=== PATIENT | female | born 1965 | race Caucasian/White ===

== ENCOUNTER → 2023-10-31 11:00 | Outpatient (BNV) | payer OTHER, SELFPAY | PROVIDERS: Visit Provider Psychiatry & Neurology Psychiatry | DX: F43.10 Post-traumatic stress disorder, unspecified (principal); F10.19 Alcohol abuse with unspecified alcohol-induced disorder; F33.9 Major depressive disorder, recurrent, unspecified; F17.210 Nicotine dependence, cigarettes, uncomplicated; R41.89 Other symptoms and signs involving cognitive functions and awareness | CPT/HCPCS: 90792; 99499 ==

== ENCOUNTER 2023-11-05 11:30 | Outpatient (RCR) | payer OTHER, SELFPAY ==
[2023-10-30 12:02] VITALS: BP 122/80; PULSE 90; TEMP 37.5
[2023-10-30 12:04] VITALS: BMI 25.2
--- NOTE | 2023-10-30 16:36 | HO.PHP ---
Client's case has been opened and reviewed in treatment team.
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
--- NOTE | 2023-11-06 15:42 | HO.PHP ---
PHP admin, Kassie, noted that Swati called out sick today.
--- NOTE | 2023-11-07 07:32 | HO.PHP ---
PHP admin, Kassie, received a call from Swati, in which she disclosed she is not going to be in attendance to program today due to being sick. Swati reported no safety concerns and will be here on Friday.
--- NOTE | 2023-11-10 08:12 | PM.EVENT ---
Event Note Date of Service: 11/07/23 Event Note: Patient was scheduled to be seen today but called out of PHP this AM. Time Spent With Patient Time: Total time managing care of this patient today ____ minutes.
== END 2023-11-10 23:59 | disposition home or self-care (01) ==
LOC: HO.PHPA 11:30
PROVIDERS: Visit Provider Psychiatry & Neurology Psychiatry
DX: F43.10 Post-traumatic stress disorder, unspecified (principal); F10.19 Alcohol abuse with unspecified alcohol-induced disorder; F33.9 Major depressive disorder, recurrent, unspecified; R41.89 Other symptoms and signs involving cognitive functions and awareness; F17.210 Nicotine dependence, cigarettes, uncomplicated; Z79.899 Other long term (current) drug therapy
CPT/HCPCS: 90791; 90853

== ENCOUNTER 2024-11-03 22:53 | Emergency (ER) | payer MEDICARE, SELFPAY ==
--- NOTE | 2024-11-03 | ECG_ITS ---
Test Reason : fall Blood Pressure : */* mmHG Vent. Rate : 80 BPM Atrial Rate : 80 BPM P-R Int : 170 ms QRS Dur : 84 ms QT Int : 468 ms P-R-T Axes : 44 39 77 degrees QTcB Int : 539 ms Normal sinus rhythm Nonspecific T wave changes Prolonged QT Abnormal ECG When compared with ECG of 12-Aug-2019 11:15, T wave inversion now evident in Anterior leads QT has lengthened Referred By: Flaco Rock Electronically Signed By: Casey Sanchez
--- NOTE | ~2024-11-03 | CT_ITS ---
CLINICAL HISTORY: fall CT cervical spine without contrast Comparison: None Findings: Vertebral alignment is within normal limits. Multilevel degenerative change of the cervical spine. No acute fractures or dislocations. Visualized intracranial contents are unremarkable. No cervical fluid collections or masses. Lung apices are clear. IMPRESSION: No acute findings. This document has been electronically signed by: Praveen Baeza MD on 11/04/2024 01:04:59
--- NOTE | ~2024-11-03 | CT_ITS ---
CLINICAL HISTORY: fall CT head without contrast Comparison: None Findings: No intra-axial mass, midline shift, hydrocephalus, or acute hemorrhage. No significant atrophy-like change or white matter disease. There is no sinus or mastoid fluid. The orbits are within normal limits. There is no acute fracture. IMPRESSION: 1. No acute intracranial findings. This document has been electronically signed by: Praveen Baeza MD on 11/04/2024 01:07:08
[2024-11-03 23:08] VITALS: BP 50/34; BP 76/42; PULSE 82; PULSE 84; RESP 16; O2SAT 91; BMI 31.8
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
[2024-11-03] MEDS: 0.9 % Sodium Chloride 1,000 ML 999 ML IV (23:15)
[2024-11-03 23:44] VITALS: BP 77/37; PULSE 80; RESP 16; TEMP 36.4; O2SAT 94
[2024-11-03 23:44] LABS: MANUAL DIFF FLAG NO
[2024-11-03 23:45] LABS: Basophils Absolute Auto 0.1 X10*3/uL (0.0-0.2); Basophils Percent Auto 0.7 % (0-2); Eosinophils Absolute Auto 0.1 X10*3/uL (0.0-0.4); Eosinophils Percent Auto 0.9 % (0-4); Hematocrit 34.8 % (37.0-47.0); Hemoglobin 12.2 g/dl (12.0-16.0); Imm Gran Abs Auto 0.03 X10*3/uL (0.00-0.03); Imm Gran Pct Auto 0.3 % (0.0-0.4); Lymphocytes Absolute Auto 3.5 X10*3/uL (1.2-4.9); Lymphocytes Percent Auto 39.4 % (20-40); Mean Corpuscular HGB Conc 35.1 g/dl (31.0-35.0); Mean Corpuscular Hemoglobin 31.7 pg (27.0-33.0); Mean Corpuscular Volume 90.4 fL (80.0-98.0); Mean Platelet Volume 9.4 fL (9.4-12.3); Monocytes Absolute Auto 0.6 X10*3/uL (0.1-1.2); Monocytes Percent Auto 6.7 % (2-11); Neutrophils Absolute Auto 4.6 x10*3/uL (2.0-8.3); Platelet Count 145 X10*3/uL (160-400); Red Blood Count 3.85 X10*6/uL (4.20-5.50); Red Cell Distribution Width 12.8 % (11.0-16.0); White Blood Count 8.8 X10*3/uL (4.8-10.8)
--- NOTE | 2024-11-03 23:47 | PC.NURSE ---
pt awake, alert, speaking clear full sentences at time of triage assessment - no apparent distress noted . received 1L bolus NS en route by ems, also received another 1L NS bolus here in ED on arrival. received 2 liters total, BP still 77/37. MD Rock aware.
[2024-11-03 23:58] LABS: Ethanol 131 mg/dL
[2024-11-03] MEDS: Lactated Ringers 1,000 ML 999 ML IVCONT (23:59)
[2024-11-04] VITALS (10 sets, daily range): BP systolic 76–120; BP diastolic 44–66; PULSE 75–84; RESP 15–20; TEMP 36.4–36.8; O2SAT 96–99
[2024-11-04 00:02] LABS: Alanine Aminotransferase 10 U/L (0-31); Albumin Level 3.2 g/dL (3.5-5.0); Alkaline Phosphatase 71 U/L (39-117); Anion Gap 15 (12-20); Aspartate Amino Transferase 29 U/L (5-31); Bilirubin Total 0.6 mg/dL (0.0-1.0); Blood Urea Nitrogen 12 mg/dL (9-16); Calcium 7.9 mg/dL (8.4-10.2); Carbon Dioxide 18 mmol/L (22-29); Chloride 111 mmol/L (96-108); Creatinine Clr Calc Pharmacy 42.2; Estimated Glomerular Filt Rate 36; Glucose Random 90 mg/dL (60-115); Magnesium 1.8 mg/dL (1.6-2.6); Potassium 3.6 mmol/L (3.3-5.1); Sodium 140 mmol/L (135-145); Total Protein 5.4 g/dL (6.5-8.0)
[2024-11-04 00:05] LABS: Troponin-I High Sensitivity 7.7 ng/L (<3.5-17.0)
[2024-11-04] MEDS: Midodrine HCl 10 MG TABLET PO (00:37)
[2024-11-04] MEDS: Albumin Human 25 % 100 ML 133.33 ML IV ×2 (01:05→01:56)
--- NOTE | 2024-11-04 01:07 | PC.NURSE ---
pt sitting up eating sandwich.
--- NOTE | 2024-11-04 02:01 | PC.NURSE ---
Pt s/o Thomas came to visit and explained to this RN that while patient was drinking earlier she disclosed thoughts of SI/self-harm, per thomas [place] [facility] was on scene and took this info down. Pt denies any SI/HI to me, says she never said this nor does she remember ever having these thoughts. Per thomas he would like her to speak with someone from care team as she has history of depression and recently relapsed on alcohol, pt in agreeance with this plan, however currently denying SI/HI at this time.
--- NOTE | 2024-11-04 03:02 | PC.NURSE ---
this RN called to check on urine specimen that was collected and sent to lab by [facility], however jonh in lab states that they never received the urine specimen
--- NOTE | 2024-11-04 04:24 | PC.NURSE ---
pt ambulated to bathroom, given urine cup for clean catch sample.
[2024-11-04 04:36] LABS: Appearance Urine Clear; Color Urine Yellow; Glucose Urine UA Negative (Negative); Leukocyte Esterase Urine Negative (Negative); Nitrite Urine Negative (Negative); PH 5.5 (5.0-9.0); Urine Blood Negative (Negative); Urine Ketones Negative (Negative); Urine Protein Negative (Neg-Trace)
[2024-11-04 04:47] LABS: Amphetamine Screen Urine Not Detected (Not Detect); Barbiturates, Urine Not Detected (Not Detect); Benzodiazepines Screen Urine Not Detected (Not Detect); Buprenorphine Scr Not Detected (Not Detect); Cannabinoid Screen Urine Not Detected (Not Detect); Cocaine Screen Urine Not Detected (Not Detect); Fentanyl, urine Not Detected (Not Detect); Methadone Screen, Urine Not Detected (Not Detect); Opiate Screen Urine Not Detected (Not Detect); Oxycodone Screen Urine Not Detected (Not Detect); Phencyclidine Screen Urine Not Detected (Not Detect)
[2024-11-04 07:58] LABS: Anion Gap 10 (12-20); Blood Urea Nitrogen 9 mg/dL (9-16); Calcium 9.1 mg/dL (8.4-10.2); Carbon Dioxide 23 mmol/L (22-29); Chloride 114 mmol/L (96-108); Creatinine Clr Calc Pharmacy 81.3; Estimated Glomerular Filt Rate > 60; Glucose Random 92 mg/dL (60-115); Potassium 4.3 mmol/L (3.3-5.1); Sodium 143 mmol/L (135-145)
== END 2024-11-04 10:19 | disposition home or self-care (01) ==
PROVIDERS: Emergency Medicine; Emergency Provider Internal Medicine; PCP Internal Medicine
DX: F10.19 Alcohol abuse with unspecified alcohol-induced disorder (principal); Y90.6 Blood alcohol level of 120-199 mg/100 ml; F33.9 Major depressive disorder, recurrent, unspecified; I95.89 Other hypotension; F43.10 Post-traumatic stress disorder, unspecified; F17.210 Nicotine dependence, cigarettes, uncomplicated; Z79.899 Other long term (current) drug therapy; S00.83XA Contusion of other part of head, initial encounter; W19.XXXA Unspecified fall, initial encounter; Y93.9 Activity, unspecified; Y92.9 Unspecified place or not applicable; Y99.9 Unspecified external cause status
CPT/HCPCS: 36415; 70450; 72125; 80048; 80053; 80307; 81003; 83735; 84484; 85025; 93005; 96361; 96365; 96366; 99285; J7120; P9047; S9485

== ENCOUNTER → 2024-11-03 23:21 | Outpatient (BNV) | payer MEDICARE, SELFPAY | PROVIDERS: Emergency Provider Internal Medicine; PCP Internal Medicine; Visit Provider Radiology Diagnostic Radiology | DX: S00.93XA Contusion of unspecified part of head, initial encounter (principal); W01.198A Fall on same level from slipping, tripping and stumbling with subsequent striking against other object, initial encounter | CPT/HCPCS: 70450; 72125 ==

== ENCOUNTER → 2024-11-03 23:22 | Outpatient (BNV) | payer MEDICARE, SELFPAY | PROVIDERS: Emergency Provider Internal Medicine; PCP Internal Medicine; Visit Provider Internal Medicine Cardiovascular Disease | DX: R94.31 Abnormal electrocardiogram [ECG] [EKG] (principal) | CPT/HCPCS: 93010 ==

== ENCOUNTER 2024-11-16 13:27 | Emergency (ER) | payer MEDICARE, SELFPAY ==
[2024-11-16 13:48] VITALS: BP 114/61; PULSE 78; O2SAT 97
--- NOTE | 2024-11-16 14:00 | ECG_ITS ---
Test Reason : qtc check Blood Pressure : */* mmHG Vent. Rate : 74 BPM Atrial Rate : 74 BPM P-R Int : 176 ms QRS Dur : 80 ms QT Int : 434 ms P-R-T Axes : 51 24 16 degrees QTcB Int : 481 ms Normal sinus rhythm Normal ECG When compared with ECG of 03-Nov-2024 23:22, T wave inversion no longer evident in Anterior leads QT has shortened Referred By: Tangela Marie Electronically Signed By: MARION LEMONS
--- NOTE | 2024-11-16 14:04 | ED_ITS ---
HPI - Alcohol General Chief Complaint: Psychiatric Symptoms Stated Complaint: ETOH. SI. Restraints per ems Time Seen by Provider: 11/16/24 13:37 Source: patient, EMS and old records reviewed Mode of arrival: EMS Limitations: no limitations History of Present Illness ED Provider: NATO AGRAWAL narrative: 59 yo female with PMH of PTSD, depression, ETOH abuse, HTN who was doing well in [place] no ETOH use for 6.5 months but relapsed and came back here to live with alcoholic boyfriend. This AM around breakfast she took her medications including a few extra klonopin but no SI intent. She states it was not a handful. She is very depressed and states she always has SI but won't do it. She denies falls or trauma. She states she wants to go to dual dx. No hx of ETOH withdrawal seizures. Drinks beer and 4 to 5 nips a day. She drank [employer]CH[employer]ICIAN complaint: alcohol intoxication and alcohol dependence Last drink: Just prior to admission Chronic alcohol use: Yes Previous visits for alcohol intoxication: Yes Recent trauma: No Associated symptoms: depression Treatments prior to arrival: none Related Data Home Medications ?Medication ?Instructions ?Recorded ?Confirmed buspirone 15 mg tablet 15 mg PO TID 10/31/23 11/16/24 clonazepam 1 mg tablet 1 mg PO TID PRN Anxiety 10/31/23 11/16/24 escitalopram oxalate 20 mg tablet 20 mg PO QAM 10/31/23 11/16/24 prazosin 2 mg capsule 4 mg PO BEDTIME 10/31/23 11/16/24 valsartan 320 mg tablet 320 mg PO DAILY 10/31/23 11/16/24 zolpidem 10 mg tablet 10 mg PO BEDTIME PRN Insomnia 10/31/23 11/16/24 bupropion HCl 150 mg 24 hr tablet, 150 mg PO QAM 11/16/24 11/16/24 extended release hydroxyzine pamoate 25 mg capsule 25 mg PO BEDTIME PRN Anxiety 11/16/24 11/16/24 Allergies Allergy/AdvReac Type Severity Reaction Status Date / Time meperidine [From DEMEROL] Allergy Unknown UNKNOWN Verified 11/16/24 14:20 Review of Systems 2 Review of Systems: Constitutional : No Fever, No Chills ENT/Mouth : No Ear Pain, No Nasal Congestion, No sore throat Eyes: No Eye Pain, No Swelling, No Redness Cardiovascular : No Chest Pain, No SOB Respiratory : No Cough, No Sputum, No Dyspnea Gastrointestinal : No Nausea, No Vomiting, No Diarrhea, No Hematochezia, No Melena Genitourinary : No Dysuria, No Urinary Frequency, No Hematuria Musculoskeletal : No Myalgias Skin : No Skin Lesions, No rash Neuro : No Weakness, No Numbness, No Paresthesias, No Dizziness, No Headache Psych : positive Anxiety, positive Depression, no SI/HI All other systems reviewed and are negative [facility] Past Medical History Attestation statement: The following information was validated with the patient. Source: old records reviewed Medical History (Updated 11/16/24 @ 14:12 by Tangela Marie DO) MDD (major depressive disorder), recurrent episode Post traumatic stress disorder (PTSD) Alcohol abuse with unspecified alcohol-induced disorder Hypertension Social History Social History Household Members: Significant Other and Other Household Members Other:: My Dog Alcohol intake: current Alcohol intake frequency: other Alcohol type: beer and hard liquor Patient Tobacco Use Status: Current everyday Tobacco user Tobacco use type: Cigarette Cigarettes Per Day: 9 Smoked in Last 30 Days: Yes Use of substances other than those prescribed or required for medical reasons: No Advance Directives: No Advance Directives Information Provided: Yes Do you have a plan to hurt others: No Plan Physical Exam ED Vital Signs: Vital Signs - 24 hr 11/16/24 14:19 11/16/24 20:41 11/16/24 22:37 Temperature 97.9 F 97.9 F 98.4 F Pulse Rate 58 98 65 Respiratory Rate 18 16 16 Blood Pressure 104/71 96/59 L 125/78 Pulse Oximetry 100 94 98 Oxygen Delivery Method Room Air Room Air Room Air 11/16/24 23:04 11/17/24 06:09 11/17/24 09:36 Temperature 98.3 F Pulse Rate 77 Respiratory Rate 16 16 Blood Pressure 125/78 125/70 Pulse Oximetry 97 Oxygen Delivery Method Room Air BMI result Body Mass Index 30.3 Appearance: Alert. Oriented X3. No acute distress. Eyes: Pupils equal, round and reactive to light. ENT: Pharynx normal. Neck: Normal inspection. Neck supple. CVS: Normal heart rate and rhythm. Pulses normal. Respiratory: No respiratory distress. Breath sounds normal. Abdomen: Soft and nontender. Skin: Skin warm and dry. Normal skin color. Normal skin turgor. Extremities: No lower extremity edema. No calf ttp Neuro: Oriented X 3. No motor deficit. No sensory deficit. CN2-12 intact Course Reevaluation(s) Reevaluation #1: November 17 2024 patient remain stable no event reported overnight patient is dual diagnosis bed search. Vital signs reviewed as a 06:09 stable Time: 07:27 Reevaluation #2: 9:04 Am seen by crisis cleared for d/c Time: 09:04 Medical Decision Making Medical Decision Making MDM Narrative: 59 yo female with PMH of PTSD, depression, ETOH abuse, HTN here with depression and ETOH abuse she is asking for dual dx bed search. She denies any sig ingestion of klonopin states it was a few. She denies SI/HI but states she is severely depressed. Labs, EKG, PRN ativan, CARE team consult Differential Diagnosis Differential Diagnoses: The differential diagnosis associated with the presentation includes ETOH abuse, benzo abuse Admission/Observation Consideration of admission/observation: Escalation of care including admission/observation considered physician observation started at 210pm pending CARE team Consult Healthcare Provider Management of the patient was discussed with: Behavioral Health Provider Lab Data [facility] Lab Attestation statement: I reviewed the patient's lab results. 11/16/24 14:13 11/16/24 14:13 Labs: Lab Results 11/16/24 11/16/24 Range/Units 14:13 14:51 WBC 6.9 (4.8-10.8) X10*3/uL RBC 4.37 (4.20-5.50) X10*6/uL Hgb 13.8 (12.0-16.0) g/dl Hct 40.7 (37.0-47.0) % MCV 93.1 (80.0-98.0) fL MCH 31.6 (27.0-33.0) pg MCHC 33.9 (31.0-35.0) g/dl RDW 14.0 (11.0-16.0) % Plt Count 135 L (160-400) X10*3/uL MPV 8.9 L (9.4-12.3) fL Immature Gran % (Auto) 0.4 (0.0-0.4) % Neut % (Auto) 56.6 (45-73) % Lymph % (Auto) 34.0 (20-40) % Tillman % (Auto) 7.8 (2-11) % Eos % (Auto) 0.6 (0-4) % Baso % (Auto) 0.6 (0-2) % Lymph # (Auto) 2.4 (1.2-4.9) X10*3/uL Tillman # (Auto) 0.5 (0.1-1.2) X10*3/uL Eos # (Auto) 0.0 (0.0-0.4) X10*3/uL Baso # (Auto) 0.0 (0.0-0.2) X10*3/uL Abs Immat Gran (auto) 0.03 (0.00-0.03) X10*3/uL Absolute Neuts (auto) 3.9 (2.0-8.3) x10*3/uL Absolute Nucleated RBC 0.000 (0.0-0.012) X10*3/uL Nucleated RBC % (auto) 0.0 (0.0-0.2) /100WBC Sodium 140 (135-145) mmol/L Potassium 3.8 (3.3-5.1) mmol/L Chloride 109 H (96-108) mmol/L Carbon Dioxide 22 (22-29) mmol/L Anion Gap 13 (12-20) BUN 4 L (9-16) mg/dL Creatinine 0.70 (0.5-1.4) mg/dL Estim Creat Clear Calc 95.2 Estimated GFR > 60 Random Glucose 89 (60-115) mg/dL Calcium 9.1 (8.4-10.2) mg/dL Magnesium 2.1 (1.6-2.6) mg/dL Total Bilirubin 1.1 H (0.0-1.0) mg/dL Direct Bilirubin 0.3 (0.0-0.5) mg/dL AST 25 (5-31) U/L ALT 18 (0-31) U/L Alkaline Phosphatase 95 (39-117) U/L Total Protein 6.1 L (6.5-8.0) g/dL Albumin 3.9 (3.5-5.0) g/dL Lipase 10 (8-78) U/L Urine Color Yellow Urine Appearance Clear Urine pH 6.0 (5.0-9.0) Ur Specific [place] <= 1.005 (1.005-1.025) Urine Protein Negative (Neg-Trace) mg/dL Urine Glucose (UA) Negative (Negative) mg/dL Urine Ketones Negative (Negative) mg/dL Urine Blood Negative (Negative) Urine Nitrite Negative (Negative) Ur Leukocyte Esterase Negative (Negative) Urine Opiates Screen Not Detected (Not Detect) Ur Buprenorphine Scrn Not Detected (Not Detect) ng/mL Ur Oxycodone Screen Not Detected (Not Detect) ng/mL Urine Methadone Screen Not Detected (Not Detect) ng/mL Urine Fentanyl Screen Not Detected (Not Detect) Ur Barbiturates Screen Not Detected (Not Detect) Ur Phencyclidine Scrn Not Detected (Not Detect) Ur Amphetamines Screen Not Detected (Not Detect) U Benzodiazepines Scrn Not Detected (Not Detect) Urine Cocaine Screen Not Detected (Not Detect) U Marijuana (THC) Screen Not Detected (Not Detect) Ethyl Alcohol 211 mg/dL Independent Interpretation I performed an independent interpretation of an: EKG Interpretation: Rate: 74 Rhythm: NSR [place]: normal Normal P waves. Normal FRANTZ. Normal QRS complex. ST T wave : normal no ANTONIO qTC: 481 prior studies: no acute ischemia The study has been interpreted contemporaneously by me. . Independent Historian Clinical information obtained from an independent historian. History obtained from or confirmed by: EMS External Record Review External record reviewed: Inpatient record and Outpatient record Medications Administered Discontinued Medications Generic Name Dose Route Start Last Admin Trade Name Freq PRN Reason Stop Dose Admin Bupropion HCl 150 mg 11/17/24 09:00 11/17/24 08:33 Bupropion Hcl Xl 150 Mg Tab.Er.24h PO 150 mg DAILY RUSLAN Administration Buspirone HCl 15 mg 11/16/24 23:00 11/17/24 08:33 Buspirone Hcl 5 Mg Tablet PO 15 mg TID RUSLAN Administration Clonazepam 1 mg 11/16/24 22:50 11/17/24 08:33 Clonazepam 1 Mg Tablet PO 1 mg TID PRN Administration Anxiety Escitalopram Oxalate 20 mg 11/17/24 09:00 11/17/24 08:33 Escitalopram Oxalate 20 Mg Tablet PO 20 mg DAILY RUSLAN Administration Lorazepam 2 mg 11/16/24 14:01 11/16/24 14:44 Lorazepam 1 Mg Tablet PO 2 mg Q3H PRN Administration Alcohol Withdrawal Prazosin HCl 4 mg 11/16/24 23:00 11/16/24 23:04 Prazosin Hcl 1 Mg Capsule PO 4 mg BEDTIME RUSLAN Administration Protocol Thiamine HCl 100 mg 11/16/24 13:59 11/16/24 14:44 Thiamine Hcl 100 Mg Tablet PO 11/16/24 14:00 100 mg ONCE ONE Administration Valsartan 320 mg 11/17/24 09:00 11/17/24 08:33 Valsartan 320 Mg Tablet PO 320 mg DAILY RUSLAN Administration Protocol Zolpidem Tartrate 10 mg 11/16/24 22:50 11/16/24 23:04 Zolpidem Tartrate 5 Mg Tablet PO 10 mg BEDTIME PRN Administration Insomnia Discharge Plan Discharge Clinical Impression: Post traumatic stress disorder (PTSD), Alcohol abuse with unspecified alcohol- induced disorder Patient Disposition: Home, Self-Care Instructions: Post Traumatic Stress Disorder (ED), Abuse of Alcohol (ED) Additional Instructions: Alcohol use disorder You were seen in the Emergency Department today for treatment of alcohol use disorder.? You may have been given medications to help with your withdrawal symptoms.? Please do not drink alcohol with them. This is very dangerous and can cause respiratory depression or other adverse reactions depending on the medication. If you would like to cut down or stop your alcohol use please consider calling our outpatient Addiction Treatment office:? [facility] (M-F [id number]) [address] [place] [address] ? You have also been given a list of treatment providers in the area that can assist as well.? If you experience seizures, vomiting blood, black stools, falls, severe headache, chest pain, fevers, trouble breathing, hallucinations or any other concerns you need to call 911 or seek immediate care. Please stay hydrated. You were seen in our Emergency Department today for treatment of a behavioral health issue. It is important after your visit that you follow up with either your behavioral health provider or a primary care doctor within 7 days.? If you have trouble finding a therapist you can reach out to [address] [phone] The National Suicide and Crisis Lifeline can be reached 7 days a week 24 hours a day.? Call 738 to speak with someone.? Return for any worsening symptoms or concerns such as thoughts of self harm or harm to others. Please call 911 if you feel your mental health is worsening.? Prescriptions: No Action clonazepam 1 mg tablet 1 mg PO TID PRN (Reason: Anxiety) valsartan 320 mg tablet 320 mg PO DAILY zolpidem 10 mg tablet 10 mg PO BEDTIME PRN (Reason: Insomnia) prazosin 2 mg capsule 4 mg PO BEDTIME buspirone 15 mg tablet 15 mg PO TID escitalopram oxalate 20 mg tablet 20 mg PO QAM bupropion HCl 150 mg tablet extended release 24 hr 150 mg PO QAM hydroxyzine pamoate 25 mg capsule 25 mg PO BEDTIME PRN (Reason: Anxiety) Interventions: Waldo-Suicide Risk Severity Scale Last Done: 11/16/24 14:29 ED Discharge Assessment Last Done: 11/17/24 09:36 Discharge Date/Time: 11/17/24 09:50 Print Language: [place]
[2024-11-16 14:19] VITALS: BP 104/71; PULSE 58; RESP 18; TEMP 36.6; O2SAT 100; BMI 30.3
[2024-11-16 14:19] LABS: MANUAL DIFF FLAG NO
[2024-11-16 14:20] LABS: Basophils Percent Auto 0.6 % (0-2); Eosinophils Percent Auto 0.6 % (0-4); Hematocrit 40.7 % (37.0-47.0); Hemoglobin 13.8 g/dl (12.0-16.0); Imm Gran Abs Auto 0.03 X10*3/uL (0.00-0.03); Imm Gran Pct Auto 0.4 % (0.0-0.4); Lymphocytes Absolute Auto 2.4 X10*3/uL (1.2-4.9); Mean Corpuscular HGB Conc 33.9 g/dl (31.0-35.0); Mean Corpuscular Hemoglobin 31.6 pg (27.0-33.0); Mean Corpuscular Volume 93.1 fL (80.0-98.0); Mean Platelet Volume 8.9 fL (9.4-12.3); Monocytes Absolute Auto 0.5 X10*3/uL (0.1-1.2); Monocytes Percent Auto 7.8 % (2-11); Neutrophils Absolute Auto 3.9 x10*3/uL (2.0-8.3); Neutrophils Percent Auto 56.6 % (45-73); Platelet Count 135 X10*3/uL (160-400); Red Blood Count 4.37 X10*6/uL (4.20-5.50); White Blood Count 6.9 X10*3/uL (4.8-10.8)
[2024-11-16 14:36] LABS: Alanine Aminotransferase 18 U/L (0-31); Albumin Level 3.9 g/dL (3.5-5.0); Alkaline Phosphatase 95 U/L (39-117); Anion Gap 13 (12-20); Aspartate Amino Transferase 25 U/L (5-31); Bilirubin Direct 0.3 mg/dL (0.0-0.5); Bilirubin Total 1.1 mg/dL (0.0-1.0); Blood Urea Nitrogen 4 mg/dL (9-16); Calcium 9.1 mg/dL (8.4-10.2); Carbon Dioxide 22 mmol/L (22-29); Chloride 109 mmol/L (96-108); Creatinine Clr Calc Pharmacy 95.2; Estimated Glomerular Filt Rate > 60; Ethanol 211 mg/dL; Glucose Random 89 mg/dL (60-115); Lipase 10 U/L (8-78); Magnesium 2.1 mg/dL (1.6-2.6); Potassium 3.8 mmol/L (3.3-5.1); Sodium 140 mmol/L (135-145); Total Protein 6.1 g/dL (6.5-8.0)
[2024-11-16] MEDS: Thiamine HCL 100 MG TABLET PO (14:44)
[2024-11-16] MEDS: LORazepam 1 MG TABLET 2 MG PO (14:44)
[2024-11-16 15:00] LABS: Appearance Urine Clear; Color Urine Yellow; Glucose Urine UA Negative (Negative); Leukocyte Esterase Urine Negative (Negative); Nitrite Urine Negative (Negative); Specific Gravity - Urine <= 1.005 (1.005-1.025); Urine Blood Negative (Negative); Urine Ketones Negative (Negative); Urine Protein Negative (Neg-Trace)
[2024-11-16 15:17] LABS: Amphetamine Screen Urine Not Detected (Not Detect); Barbiturates, Urine Not Detected (Not Detect); Benzodiazepines Screen Urine Not Detected (Not Detect); Buprenorphine Scr Not Detected (Not Detect); Cannabinoid Screen Urine Not Detected (Not Detect); Cocaine Screen Urine Not Detected (Not Detect); Fentanyl, urine Not Detected (Not Detect); Methadone Screen, Urine Not Detected (Not Detect); Opiate Screen Urine Not Detected (Not Detect); Oxycodone Screen Urine Not Detected (Not Detect); Phencyclidine Screen Urine Not Detected (Not Detect)
--- OUTSIDE RECORDS SUMMARY | 2024-11-16 18:15 | XMS_ITS | Clinical Summary ---
Author Organization Cindy Waters [facility] Address [address] [place] [id number] Care Team Providers Care Chief Embalmer Name Role Phone Maykel Serrano MD Unavailable [phone] Siobhan Cota MD Unavailable Unavailable None, Pcp Primary Care Provider Unavailabl e Allergies Active Allergy Reactions Criticality Noted Date Comments Meperidine Unknown 12/29/2012 Encounters Date Type Department Care Team Description 10/28/2024 5:25 PM EDT - 10/28/2024 10:58 PM EDT [facility] [address] [place] [address] [phone] Sapna Ulloa NP Meenan, Kelly A, PA Alcoholic intoxication without complication (HCC) (Primary Dx); Suicidal ideation; Post traumatic stress disorder (PTSD) [F43.10] Discharge Disposition: Home or Self Care 10/28/2024 Travel from Last 3 Months Social History Tobacco Use Types Packs/Day Years Used Date Smoking Tobacco: Never Assessed Comments Unknown Sex and Gender Information Value Date Recorded Sex Assigned at Female 10/26/2024 10:08 AM EDT Legal Sex Female 1:45 AM EST Gender Identity Female 10/26/2024 10:08 AM EDT Sexual Orientation Not on file Last Filed Vital Signs Vital Sign Reading Time Taken Comments Blood Pressure 107/67 10/28/2024 10:33 PM EDT Pulse 71 10/28/2024 10:33 PM EDT Temperature 36.4 ??C (97.6 ??F) 10/28/2024 5:09 PM ED T Respiratory Rate 20 10/28/2024 10:33 PM EDT Oxygen Saturation 97% 10/28/2024 10:33 PM EDT Inhaled Oxygen Concentration - - Weight - - Height 167.6 cm (5' 6 ) 10/28/2024 5:09 PM EDT Body Mass Index - - Plan of Treatment Upcoming Encounters Date Type Department Care Team (Late st Contact Info) Description 05/04/2025 11:00 AM EDT Office Visit [facility] [address] [facility] [address] [place] [address] Tima Alicea III, MD [address] [place] [address] [address] [place] [address] In Person with Physician Health Maintenance Due Date Last Done Comments Lipid Panel 1965 Depression Screening 1969 Hepatitis C Screening 1983 DTaP,Tdap,and Td Vaccines (1 - Tdap) 1984 HPV/Cotest 1995 Breast Cancer Screening 2005 CT Colonography 2010 Colonoscopy 2010 Colorectal Cancer Screening 2010 FIT 2010 FOBT 2010 Multitarget Stool DNA (Cologuard) 2010 Sigmoidoscopy 2010 Cervical Cancer Screening 11/29/2011 Pap Smear 11/29/2011 11/28/2008, 07/18, 04/07/2008, Additional history exists Pneumococcal Vaccine (1 of 1 - PCV) 2015 Zoster Vaccine (1 of 2) 2015 COVID-19 Vaccine (1 - season) 2024 Influenza Vaccine (#1) 2024 Blood Pressure 10/28/2025 10/28/2024 Meningococcal Vaccines Aged Out No lo nger eligible based on patient's age to complete this topic Pneumococcal Vaccine: Pediatrics (0 to 5 Years) and At-Risk Patients (6 to 64 Years) Aged Out No longer eligible based on patient's age to complete this topic Procedures Procedure Name Priority Date/Time Associated Diagnosis Comments CT CERVICAL SPINE WO CONTRAST STAT 10/28/2024 10:[address] HEAD WO CONTRAST STAT 10/28/2024 1 0:04 PM EDT 6-ACETYLMORPHINE SCREEN, URINE STAT 10/28/2024 6:11 PM EDT TRAMADOL SCREEN, URINE STAT 10/28/2024 6:11 PM EDT FENTANYL SCREEN, URINE STAT 10/28/2024 6:11 PM EDT DRUG SCREEN, URINE STAT 10/28/2024 6: 11 PM EDT CBC AND DIFFERENTIAL STAT 10/28/2024 5:51 PM EDT RAINBOW DRAW STAT 10/28/2024 5:51 PM EDT CBC AND DIFFERENTIAL STAT 10/28/2024 5:51 PM EDT YELLOW TOP STAT 10/28/2024 5:51 PM EDT MINT GREEN TOP STAT 10/28/2024 5:51 PM EDT RED TOP STAT 10/28/2024 5:51 PM EDT LIGHT BLUE TOP STAT 10/28/2024 5:51 PM EDT TOXICOLOGY SCREEN, BLOOD STAT 10/28/2024 5:51 PM EDT BASIC METABOLIC PANEL STAT 10/28/2024 5:51 PM EDT ECG 12-LEAD STAT 10/28/2024 5:46 PM EDT LIQUID-BASED PAP, REFLEX HPV IF ASC-US Routine 11/28/2008 from Last 3 Months or Most Recently Relevant to Health Maintenance Results * CT Cervical Spine Without Contrast (10/28/2024 10:04 PM EDT) Anatomical Region Laterality Modality Cervical Spine Computed Tomogra phy 10/29/2024 8:02 AM EDT Impressions 10/29/2024 8:04 AM EDT No acute fracture or traumatic malalignment of the cervical spine. Narrative 10/29/2024 8:04 AM EDT EXAM DESCRIPTION: ??CT CERVICAL SPINE WO CONTRAST. CLINICAL HISTORY: ??fall, intoxicated; COMPARISON: ?? None. TECHNIQUE: ??Spiral CT images were acquired through the cervical spine. ??Coronal, axial, and sagittal reformats were submitted for interpretation. - MIPS Measure #361 Patient Exposure to Ionizing Radiation was submitted to [employer] Dose Index Registry and MIPS Measure #359 standard nomenclature was used for Dose Index registry submission and Measure #436 Adaptive Iterative Dose Reduction (AIDR) and NEMA XR 25 DOSE check software, were used to reduce radiation dose to the patient FINDINGS: ??No acute fracture, compression deformity, or traumatic listhesis is identified. ??There is slight reversal of the normal cervical lordosis with grade 1 anterolisthesis of C2 on 3. ??The C1-2 and C1 to occipital condyle relationships are intact. ??Vertebral body heights are grossly maintained. ??Multilevel discogenic disease and degenerative changes are greatest at C5-6 with disc space narrowing, endplate degenerative change, marginal osteophytosis, posterior disc osteophyte complex formation, uncovertebral hypertrophy, and facet arthrosis. ??This results in varying levels of central canal and neural foraminal narrowing. ??Prevertebral soft tissues are unremarkable. ??Few subcentimeter left apical pulmonary nodules are nonspecific. Procedure Note Manju Gordillo MD - 10/29/2024 EXAM DESCRIPTION: CT CERVICAL SPINE WO CONTRAST. CLINICAL HISTORY: fall, intoxicated; COMPARISON: None. TECHNIQUE: Spiral CT images were acquired through the cervical spine. Coronal, axial, and sagittal reformats were submitted for interpretation. - MIPS Measure #361 Patient Exposure to Ionizing Radiation was submitted to [employer]ose[employer] Dose Index Registry and MIPS Measure #359 standard nomenclature was used for Dose Index registry submission and Measure #436 Adaptive Iterative Dose Reduction (AIDR) and NEMA XR 25 DOSE check software, were used to reduce radiation dose to the patient FINDINGS: No acute fracture, compression deformity, or traumatic listhesis is identified. There is slight reversal of the normal cervical lordosis with grade 1 anterolisthesis of C2 on 3. The C1-2 and C1 to occipital condyle relationships are intact. Vertebral body heights are grossly maintained. Multilevel discogenic disease and degenerative changes are greatest at C5-6 with disc space narrowing, endplate degenerative change, marginal osteophytosis, posterior disc osteophyte complex formation, uncovertebral hypertrophy, and facet arthrosis. This results in varying levels of central canal and neural foraminal narrowing. Prevertebral soft tissues are unremarkable. Few subcentimeter left apical pulmonary nodules are nonspecific. IMPRESSION: No acute fracture or traumatic malalignment of the cervical spine. Sapna Ulloa NP IMCornel[facility] CT ORDERABLES Final Result * CT Head Without Contrast (10/28/2024 10:04 PM EDT) Anatomical Region Laterality Modality Head Computed Tomogra phy 10/29/2024 8:00 AM EDT Impressions 10/29/2024 8:01 AM EDT No acute intracranial hemorrhage, large territorial infarction, or mass effect. Narrative 10/29/2024 8:01 AM EDT EXAM DESCRIPTION: ??CT HEAD WO CONTRAST. CLINICAL HISTORY: ??fall, intoxicated; . COMPARISON: ??None. TECHNIQUE: ??A series of 3 mm axial scans with 2 mm collimation were reconstructed from the foramen magnum to the vertex of the skull. - MIPS Measure #361 Patient Exposure to Ionizing Radiation was submitted to [employer]ose[employer]ise Dose Index Registry and MIPS Measure #359 standard nomenclature was used for Dose Index registry submission and Measure #436 Adaptive Iterative Dose Reduction (AIDR) and NEMA XR 25 DOSE check software, were used to reduce radiation dose to the patient . FINDINGS: ??There is no CT evidence for acute intracranial hemorrhage, large territorial infarction, mass effect, midline shift, or extra-axial collection. ??Brain parenchymal volume is age-appropriate. Emmanuel-white matter differentiation is preserved. ??The ventricles and basal cisterns are symmetric in caliber and configuration. ??Is mild left maxillary sinus mucosal thickening. ??The remaining visualized paranasal sinuses and mastoid air cells are well aerated. ??No acute calvarial fracture is seen. Procedure Note Manju Gordillo MD - 10/29/2024 EXAM DESCRIPTION: CT HEAD WO CONTRAST. CLINICAL HISTORY: fall, intoxicated; . COMPARISON: None. TECHNIQUE: A series of 3 mm axial scans with 2 mm collimation were reconstructed from the foramen magnum to the vertex of the skull. - MIPS Measure #361 Patient Exposure to Ionizing Radiation was submitted to [employer]ose[employer] Dose Index Registry and MIPS Measure #359 standard nomenclature was used for Dose Index registry submission and Measure #436 Adaptive Iterative Dose Reduction (AIDR) and NEMA XR 25 DOSE check software, were used to reduce radiation dose to the patient . FINDINGS: There is no CT evidence for acute intracranial hemorrhage, large territorial infarction, mass effect, midline shift, or extra-axial collection. Brain parenchymal volume is age-appropriate. Emmanuel-white matter differentiation is preserved. The ventricles and basal cisterns are symmetric in caliber and configuration. Is mild left maxillary sinus mucosal thickening. The remaining visualized paranasal sinuses and mastoid air cells are well aerated. No acute calvarial fracture is seen. IMPRESSION: No acute intracranial hemorrhage, large territorial infarction, or mass effect. Sapna Ulloa NP [facility] CT ORDERABLES Final Result * 6-Acetylmorphine Screen, Urine (10/28/2024 6:11 PM EDT) 6-Aceytlmorphine Screen, Urine Negative Negative MAYS [id number] 10/28/2024 6:57 PM EDT [facility] Comment: 6-acetylmorphine cutoff is 10 ng/mL 6-acetylmorphine Add on order [id number] Opiates and Oxycodone, Urine, Confirmation, if confirmation desired. Results should be used for medical purposes only and not for any legal or employment evaluative purposes. Urine URINE SPECIMEN / Unknown Collection / Unknown 10/28/2024 6:11 PM EDT 10/28/2024 6:11 PM EDT Sapna Artemio FL[employer]ANG[employer] URINE ORDERABLES Final Result [facility] [address] [place] [address], [place] [phone] * Drug Screen, Urine (10/28/2024 6:11 PM EDT) [facility] Amphetamines Screen, Urine Negative Negative 10/28/2024 7:00 PM EDT [facility] Barbiturates Screen, Urine Negative Negative 10/28/2024 7:00 PM EDT [facility] Benzodiazepine Screen, Urine Negative Negative [facility], [facility] Negative Negative [facility]abin[facility] Screen, Urine Negative Negative 10/28/2024 7:00 PM [facility] Cocaine Metabolite Screen, Urine Negative Negative 10/28/2024 7:00 PM [facility] Methadone Screen, Urine Negative Negative 10/28/2024 7:00 PM [facility] Methamphetamine, Urine Negative Negative 10/28/2024 7:00 PM [facility] Opiates Screen, Urine Negative Negative 10/28/2024 7:00 PM [facility] Oxycodone Screen, Urine Negative Negative 10/28/2024 7:00 PM [facility] TCA, Urine Negative Negative 10/28/2024 7:00 PM [facility] Creatinine, Sherif Urine 26.2 No Established Reference Range mg/dL MAYS [id number] 10/28/2024 7:00 PM [facility] Fentanyl Screen, Urine Negative Negative MAYS [id number] 10/28/2024 7:00 PM [facility] Tramadol Screen, Urine Negative Negative MAYS [id number] 10/28/2024 7:00 PM [facility] 6-Aceytlmorphine Screen, Urine Negative Negative MAYS [id number] 10/28/2024 7:00 PM [facility] Urine URINE SPECIMEN / Unknown Collection / Unknown 10/28/2024 6:11 PM EDT 10/28/2024 6:11 PM EDT [facility] - 10/28/2024 7:00 PM EDT Specimen analysis was performed without chain of custody handling. Urine drug screen results should be used for medical purposes only and not for any legal or employment evaluative purposes. Amphetamines cutoff is 500 ng/mL. Barbiturates cutoff is 200 ng/mL. Benzodiazepines cutoff is 150 ng/mL. Buprenorphine cutoff is 300 ng/mL. Cannabinoids cutoff is 50 ng/mL. Cocaine cutoff is 150 ng/mL. ?? Methadone cutoff is 200 ng/mL. Methamphetamine cutoff is 500 ng/ml Opiates cutoff is 100 ng/mL. Oxycodone cutoff is 100 ng/mL. Phencyclidine (PCP) cutoff is 25 ng/mL ?? TCA cutoff is 300 ng/mL Urine results are presumptive based only on screening methods and have not been confirmed by a second method. ??These results should be used only by physicians to render diagnosis, treatment, or to monitor progress of medical conditions. ??The assay is not intended to monitor compliance or absinence. Thresholds are established by the test community education coordinator. ??Drug levels below thresholds will be reported as negative. ??This is an antibody-antigen methods screening test and has the potential for false positive results caused by other drugs, medications and supplements with similar structures, if results are discordant clinically. Sapna Ulloa URINE ORDERABLES Final Result Performing Organization Address City/State/[facility] Co de Phone Number [facility] [address] [place] [address], * Tramadol Screen, Urine (10/28/2024 6:11 PM EDT) [facility] Tramadol Screen, Urine Negative Negative be2 [id number] 10/28/2024 6:57 PM EDT [facility] Comment: Tramadol cutoff is 200 ng/mL Tramadol. Add-on order [id number] Tramadol Confirmation, Urine, if confirmation desired. Results should be used for medical purposes only and not for any legal or employment evaluative purposes. Urine URINE SPECIMEN / Unknown Collection / Unknown 10/28/2024 6:11 PM EDT 10/28/2024 6:11 PM EDT IMVU URINE ORDERABLES Final Result Performing Organization Address City/[facility]/ZIP Co de Phone Number [facility] [address] [place] [address], [place] [phone] * Fentanyl Screen, Urine (10/28/2024 6:11 PM EDT) Pathologist [facility] Fentanyl Screen, Urine Negative Negative MAYS [id number] 10/28/2024 6:57 PM EDT [facility] Urine URINE SPECIMEN / Unknown Collection / Unknown 10/28/2024 6:11 PM EDT 10/28/2024 6:11 PM EDT Sapna Ulloa [employer] URINE ORDERABLES Final Result Performing Organization Address [facility] Co de Phone Number [facility] [address] [place] [address], [place] [phone] * (ABNORMAL) CBC and Differential (10/28/2024 5:51 PM EDT) [facility] WBC 10.60 4.00 - 11.00 K/uL 10/28/2024 6:02 PM EDT [facility] RBC 4.72 4.00 - 5.20 M/uL 10/28/2024 6:02 PM EDT [facility] Hemoglobin 15.1(H) 12.0 - 15.0 g/dL 10/28/2024 6:02 PM EDT [facility] Hematocrit 43.4 36.0 - 45.0 % 10/28/2024 6:02 PM EDT [facility] MCH 32.0 23.0 - 37.0 pg 10/28/2024 6:02 PM EDT [facility] MCHC 34.8 29.0 - 38.0 g/dL 10/28/2024 6:02 PM EDT [facility] MCV 92 82 - 98 fL 10/28/2024 6:02 PM EDT [facility] RDW 12.6 11.5 - 15.0 % 10/28/2024 6:02 PM EDT [facility] Platelet Count 161 150 - 450 K/uL 10/28/2024 6:02 PM EDT [facility] MPV 9.2 8.0 - 14.0 fL 10/28/2024 6:02 PM EDT [facility] Neutrophil 50.2 % 10/28/2024 6:02 PM EDT [facility] Lymphocyte 42.1 % 10/28/2024 6:02 PM EDT [facility] Monocyte 5.8 % 10/28/2024 6:02 PM EDT [facility] Eosinophil 0.9 % 10/28/2024 6:02 PM EDT [facility] Basophil 0.8 % 10/28/2024 6:02 PM EDT [facility] Immature Granulocyte ([place], Myelo, Promyelocyte) 0.2 % 10/28/2024 6:02 PM EDT [facility] Absolute Neutrophil Count 5.32 1.50 - 7.70 K/uL [facility] Immature Granulocyte ([place], Myelo, Promyelocyte) 0.02 0.00 - 0.09 K/uL 10/28/2024 6:02 PM EDT [facility] Absolute Lymphocyte Count 4.46 1.00 - 5.00 K/uL 10/28/2024 6:02 PM EDT [facility] Absolute Monocyte Count 0.61 0.10 - 1.00 K/uL 10/28/2024 [facility] Eosinophil Count 0.10 0.00 - 0.70 K/uL 10/28[facility]2024 [facility] Absolute Basophil Count 0.09 0.00 - 0.20 K/uL 10/28/2024 6:02 PM [facility] Blood PERIPHERAL BLOOD SPECIMEN / Unknown Venipuncture / Unknown 10/28/2024 5:51 PM EDT 10/28/2024 5:51 PM EDT us Sapna Ulloa NP LAB BLOOD ORDERABLES Final Res ult [facility] [address] [place] [address], * (ABNORMAL) Plasma Toxicology Screen (10/28/2024 5:51 PM EDT) Acetaminophen Result,Blood <3(L) Therapuetic Range 10-30 ug/mL [place]A [id number] 10/28/2024 6:48 PM EDT [facility] Alcohol 207(HH) <10 mg/dL [address] 10/28/2024 6:48 PM EDT [facility] Salicylate Level, Blood <5(L) 15 - <30 mg/dL [address] 10/28/2024 6:48 PM EDT [facility] Blood PERIPHERAL BLOOD SPECIMEN / Unknown Venipuncture / Unknown 10/28/2024 5:51 PM EDT 10/28/2024 5:51 PM EDT us Sapna Chandrahane [employer] LAB BLOOD ORDERABLES Final Res ult Performing Organization Address [facility]/ZIP Co de Phone Number [address] [address], [place] [phone] * Gold Top (10/28/2024 5:51 PM EDT) Gold Top Tube Received 10/28/2024 7:02 PM EDT [facility] Blood PERIPHERAL BLOOD SPECIMEN / Unknown Venipuncture / Unknown 10/28/2024 5:51 PM EDT 10/28/2024 5:51 PM EDT us Sapna Toureramona BANERJEE LAB BLOOD ORDERABLES Final Res ult Performing Organization Address City/[facility]/ZIP Co de Phone Number [facility] [address] [place] [address], [place] [phone] * Mint Green Top (10/28/2024 5:51 PM EDT) PST Tube Received 10/28/2024 7:02 PM EDT [facility] Blood PERIPHERAL BLOOD SPECIMEN / Unknown Venipuncture / Unknown 10/28/2024 5:51 PM EDT 10/28/2024 5:51 PM EDT us Sapna Ulloa [employer] LAB BLOOD ORDERABLES Final Res ult [facility] [address] [place] [address], [place] [phone] * Red Top (10/28/2024 5:51 PM EDT) Red Top Tube Received 10/28/2024 7:02 PM EDT [facility] Blood PERIPHERAL BLOOD SPECIMEN / Unknown Venipuncture / Unknown 10/28/2024 5:51 PM EDT 10/28/2024 5:51 PM EDT Sapna Touree [employer] LAB BLOOD ORDERABLES Final Res ult Performing Organization Address [facility] Co de Phone Number [facility] [address] [place] [address], [place] [phone] * Blue Top (10/28/2024 5:51 PM EDT) Blue Top Tube Received 10/28/2024 7:02 PM EDT [facility] Blood PERIPHERAL BLOOD SPECIMEN / Unknown Venipuncture / Unknown 10/28/2024 5:51 PM EDT 10/28/2024 5:51 PM EDT Sapna Artemio [employer] LAB BLOOD ORDERABLES Final Res ult Performing Organization Address [facility] de Phone Number [facility] [address] [place] [address], [place] [phone] * (ABNORMAL) Basic Metabolic Panel (10/28/2024 5:51 PM EDT) Pathologist [facility] Sodium 136 134 - 144 mmol/L MAYS [id number] 10/28/2024 6:21 PM EDT [facility] Potassium 3.4 3.2 - 5.1 mmol/L MAYS [id number] 10/28/2024 6:21 PM EDT [facility] Comment:Samples tested in se rum may exhibit a higher potassium value than those tested on plasma. Our current range is based on plasma testing. Chloride 106 97 - 109 mmol/L MAYS [id number] 10/28/2024 6:21 PM EDT [facility] Total CO2/Bicarbonat e 18(L) 20 - 32 mmol/L [address] 10/28/2024 6:21 PM EDT [facility] Anion Gap 12 5 - 15 mmol/L [address] 10/28/2024 6:21 PM EDT [facility] BUN 6(L) 7 - 20 mg/dL [address] 10/28/2024 6:21 PM EDT [facility] Creatinine, Blood 0.76 0.60 - 1.10 mg/dL [address] 10/28/2024 6:21 PM EDT [facility] Glucose, Blood 87 70 - 110 mg/dL [address] 10/28/2024 6:21 PM EDT [facility] Calcium 9.8 8.5 - 10.5 mg/dL [address] 10/28/2024 6:21 PM EDT [facility] Estimated GFR(CKD-EPI) 86 >=60 mL/min/BSA [address] 10/28/2024 6:21 PM EDT [facility] Blood PERIPHERAL BLOOD SPECIMEN / Unknown Venipuncture / Unknown 10/28/2024 5:51 PM EDT 10/28/2024 5:51 PM EDT Sapna Ulloa [employer] LAB BLOOD ORDERABLES Final Res ult [address] [address], * ECG 12 lead (10/28/2024 5:46 PM EDT) [facility] Ventricular Heart Rate 77 BPM EKG WIN Atrial Heart Rate 77 BPM EKG WIN VA Interval 158 ms EKG WIN QRSD Interval 76 ms EKG WIN QT Interval 422 ms EKG WIN QTC Interval 477 ms EKG WIN P [place] 79 degrees EKG WIN R [place] 47 degrees EKG WIN T Wave [place] 118 degrees EKG WIN 10/28/2024 5:46 PM EDT 10/29/2024 3:12 PM EDT Narrative EKG WIN - 10/29/2024 3:12 PM EDT Normal sinus rhythm ST & T wave abnormality, consider lateral ischemia Abnormal ECG No previous ECGs available Confirmed by Morgan Betancourt ([id number]) on 10/29/2024 3:12:12 PM Procedure Note Morgan Betancourt MD - 10/29/[address] & T wave abnormality, consider lateral ischemia Abnormal ECG No previous ECGs available Confirmed by Morgan Betancourt ([id number]) on 10/29/2024 3:12:12 PM us Sapna Ulloa NP ECG ORDERABLES Final Result [facility] [address] [place] [address] * LB PAP, Screen, reflex HPV if ASC-US (11/28/2008) 11/28/2008 11/28/2008 7:4 9 AM EDT Narrative CONVERSION FROM [facility] - 12/07/2008 11:46 AM EDT ?CYTOLOGY DIAGNOSIS ? SATISFACTORY FOR EVALUATION, ENDOCERVICAL COMPONENT ABSENT ? Negative for intraepithelial lesion or malignancy ? SHIFT IN [place] SUGGESTIVE OF BACTERIAL VAGINOSIS ? EDUCATION NOTES AND SUGGESTIONS: ? Lack of transformation zone component does not warrant an ? early repeat cytology. ??Attention to regular screening is ? suggested. ?Dictated by: MANUEL FAIR NOTES: ? This is the result of a screening test with inherent, but ? low, probability of error. Your patient should be reminded ? to consult you immediately if she experiences any suspicious ? signs or symptoms, regardless of her Pap test result. PATH PROCEDURES: ? THIN PREP MAN SPECIMEN DESCRIPTION: ? 1 VIAL/SOURCE OF SPECIMEN WAS NOT PROVIDED CLINICAL HISTORY: ? CLINICAL DIAGNOSIS ??795.00 ? Signed Electronically Signed ?MANUEL FAIR 12/07/08 1146 Laura Rose MD PATHOLOGY/CYTOLOGY ORDERABLES Final Result Performing Organization Address [facility] Co de Phone Number CONVERSION FROM [facility] from Last 3 Months or Most Recently Relevant to Health Maintenance Insurance [place] [address] [employer]AGE [employer]AGE Care Teams Chief Embalmer Relationship Specialty Start Date End Date Maykel Serrano MD [address] [place] [phone] PCP - Insurance Assigned PCP 10/20/24 None, MD Kaye PCP - General 10/28/24 Siobhan Cota MD 10/21/17
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
--- NOTE | 2024-11-16 20:37 | PC.NURSE ---
pt ambulating to the bathroom with an even and steady gait
[2024-11-16 20:41] VITALS: BP 96/59; PULSE 98; RESP 16; TEMP 36.6; O2SAT 94
--- NOTE | 2024-11-16 21:01 | PC.NURSE ---
pt awaraea of plan of care, move to POD and then follow up with care team in the AM, pt is requesting to go home. MD aware. Care team will speak with pt again
--- NOTE | 2024-11-16 22:10 | PC.NURSE ---
@2020 requested outpatient meds be continued for patient
[2024-11-16 22:37] VITALS: BP 125/78; PULSE 65; RESP 16; TEMP 36.9; O2SAT 98
--- NOTE | 2024-11-16 22:44 | PC.NURSE ---
requested med continuance from 2nd provider
[2024-11-16] MEDS: busPIRone HCl 5 MG TABLET 15 MG PO (23:02)
[2024-11-16 23:04] VITALS: BP 125/78
[2024-11-16] MEDS: Prazosin HCL 1 MG CAPSULE 4 MG PO (23:04)
[2024-11-16] MEDS: Zolpidem Tartrate 5 MG TABLET 10 MG PO (23:04)
--- NOTE | 2024-11-17 04:16 | PC.NURSE ---
pt sleeping at this time, no sign of distress.
[2024-11-17 06:09] VITALS: RESP 16
--- NOTE | 2024-11-17 08:06 | PHA.MEDREC ---
Addendum entered by Carolyne Kendall RPh 11/17/24 08:43: Med rec was reviewed by [facility]. Original Note: Pharmacy Consult ? Medication Reconciliation Pharmacy has reviewed the medication reconciliation done by nursing. Utilized claims to confirm med rec.
[2024-11-17] MEDS: Escitalopram Oxalate 20 MG TABLET PO (08:33)
[2024-11-17] MEDS: Valsartan 320 MG TABLET PO (08:33)
[2024-11-17] MEDS: busPIRone HCl 5 MG TABLET 15 MG PO (08:33)
[2024-11-17] MEDS: buPROPion HCl XL 150 MG TAB.ER.24H PO (08:33)
[2024-11-17] MEDS: clonazePAM 1 MG TABLET PO (08:33)
[2024-11-17 09:36] VITALS: BP 125/70; PULSE 77; RESP 16; TEMP 36.8; O2SAT 97
--- NOTE | 2024-11-17 10:41 | MHC.CARE ---
Referral was faxed to [facility] for a 3 day follow up and a request was made to have pt placed on a 7 day alert. [facility] confirms they have received the fax and it has been activated.
== END 2024-11-17 09:50 | disposition home or self-care (01) ==
PROVIDERS: Emergency Provider Emergency Medicine; PCP Internal Medicine
DX: F43.10 Post-traumatic stress disorder, unspecified (principal); F10.19 Alcohol abuse with unspecified alcohol-induced disorder; Y90.7 Blood alcohol level of 200-239 mg/100 ml; R45.851 Suicidal ideations; F33.9 Major depressive disorder, recurrent, unspecified; F17.210 Nicotine dependence, cigarettes, uncomplicated; I10 Essential (primary) hypertension; Z79.899 Other long term (current) drug therapy
CPT/HCPCS: 36415; 80048; 80076; 80307; 81003; 83690; 83735; 85025; 93005; 99285; S9485

== ENCOUNTER → 2024-11-16 14:00 | Outpatient (BNV) | payer MEDICARE, SELFPAY | PROVIDERS: Emergency Provider Emergency Medicine; PCP Internal Medicine; Visit Provider Internal Medicine | DX: Z13.6 Encounter for screening for cardiovascular disorders (principal) | CPT/HCPCS: 93010 ==

== ENCOUNTER 2024-11-24 13:32 | Inpatient (IN) | payer OTHER, SELFPAY ==
[2024-11-24 13:59] VITALS: BP 108/60; BP 120/60; PULSE 57; PULSE 62; RESP 17; TEMP 37.1; O2SAT 97; O2SAT 98; BMI 25.4
--- NOTE | 2024-11-24 14:06 | ECG_ITS ---
Test Reason : overdose Blood Pressure : */* mmHG Vent. Rate : 60 BPM Atrial Rate : 60 BPM P-R Int : 178 ms QRS Dur : 84 ms QT Int : 486 ms P-R-T Axes : 54 31 54 degrees QTcB Int : 486 ms Normal sinus rhythm Prolonged QT Abnormal ECG When compared with ECG of 16-Nov-2024 14:06, No significant change was found Referred By: Ronen Best Electronically Signed By: Casey Sanchez
--- NOTE | 2024-11-24 14:07 | ED.OVERDOSE ---
HPI - Overdose General Chief Complaint: Psychiatric Symptoms Stated Complaint: Section 12, SI, ETOH/consumed 20 klonopin Time Seen by Provider: 11/24/24 13:49 Source: patient Mode of arrival: EMS Limitations: no limitations History of Present Illness HPI Narrative: This is a 59 years old female with a history of alcohol abuse presented to the emergency department via ambulance after ingested about 20 clonazepam 1 mg of an hour ago, patient reports she has been suicidal, she has been gone through a lot of stress MD complaint: intentional overdose Intent: suicide attempt Context: Intentional Overdose: relationship problems and drug/ETOH problems Associated symptoms: depression Treatments Prior to Arrival: none Related Data Home Medications ?Medication ?Instructions ?Recorded ?Confirmed buspirone 15 mg tablet 15 mg PO TID 10/31/23 11/25/24 clonazepam 1 mg tablet 1 mg PO TID PRN Anxiety 10/31/23 11/25/24 escitalopram oxalate 20 mg tablet 20 mg PO DAILY 10/31/23 11/25/24 prazosin 2 mg capsule 4 mg PO BEDTIME 10/31/23 11/25/24 valsartan 320 mg tablet 320 mg PO DAILY 10/31/23 11/25/24 zolpidem 10 mg tablet 10 mg PO BEDTIME PRN Insomnia 10/31/23 11/25/24 bupropion HCl 150 mg 24 hr tablet, 150 mg PO DAILY 11/16/24 11/25/24 extended release hydroxyzine pamoate 25 mg capsule 25 mg PO BEDTIME PRN Anxiety 11/16/24 11/25/24 Allergies Allergy/AdvReac Type Severity Reaction Status Date / Time meperidine [From DEMEROL] Allergy Unknown UNKNOWN Verified 11/24/24 14:03 Review of Systems Psychiatric: Psychiatric: Reports depression and Reports other (Alcohol abuse) [facility] Past Medical History Medical History (Updated 11/24/24 @ 14:21 by Ronen Best MD) MDD (major depressive disorder), recurrent episode Post traumatic stress disorder (PTSD) Alcohol abuse with unspecified alcohol-induced disorder Hypertension Social History Social History Household Members: Significant Other and Other Household Members Other:: My Dog Alcohol intake: current Alcohol intake frequency: other Alcohol type: beer and hard liquor Patient Tobacco Use Status: Current everyday Tobacco user Tobacco use type: Cigarette Cigarettes Per Day: 9 Smoked in Last 30 Days: Yes Use of substances other than those prescribed or required for medical reasons: No Advance Directives: No Advance Directives Information Provided: Yes Do you have a plan to hurt others: No Plan Physical Exam Vital Signs: Vital Signs: Last Vital Signs Temp 97.0 F 11/25/24 08:22 Pulse 59 11/25/24 08:22 Resp 20 11/25/24 08:22 BP 107/62 11/25/24 08:22 Pulse Ox 94 11/25/24 08:22 O2 Del Method Room Air 11/25/24 08:22 BMI result Body Mass Index 25.4 She is awake alert oriented x3 no distress Const: General: cooperative Nutritional Appearance: average body habitus Orientation/consciousness: patient oriented x3 Limitations: no limitations HEENT: Head: Yes normal to inspection General nose exam: Normal external nose present Face and sinus: Yes normal facial exam Throat: Yes posterior oropharynx normal Neck: Neck: Yes normal visual inspection Chest: Chest palpation & inspection: normal inspection of the chest Resp: Effort & Inspection: normal respiratory effort Auscultation: clear to auscultation bilaterally Cardio: Jugular venous distension: no JVD Rate: regular rate Rhythm: regular rhythm GI: Inspection: Yes normal to inspection Palpation (GI): not soft and not firm Auscultation: normal bowel sounds Skin: General skin exam: no rashes or lesions noted and elasticity normal Lesions: no lesions Rashes: no rashes Wounds: no wounds Neuro: General: patient oriented x3 Course Course Course Narrative: Time: 14:14 Date: 11/25/24 Provider: Zuhair Zazueta MD Patient in physician observation for psychiatric evaluation.? No acute events reported overnight. No current complaints. VS stable.? Per CARE team recommendations, patient is admitted as inpatient for further care Reevaluation(s) Reevaluation #1: Consulted poison control no charcoal, we will continue observation for clinical deterioration Time: 14:21 Reevaluation #2: Patient remain awake and alert asking for food. At this point I think we will cleared the patient. As now 2 hours of observation in the ED remained awake and alert stable vital signs labs within normal limits. We will consult crisis. Time: 15:51 Reevaluation #3: Awake and alert eating and drinking signed out to Dr Rivera crisis eval pending Time: 16:15 Additional Reevaluation(s): Dr. Rivera, 11/24/2024, 23:46: The patient was signed out out to me by the previous emergency physician pending a crisis evaluation. The patient has been seen by the crisis team. Given the nature of the patient's overdose they are recommending that the patient be admitted for inpatient care. They are recommending the patient be held on a section 12 for this purpose. The patient was unhappy about this decision and told me that she does not feel that she had any plans to harm herself and she was requesting that she be discharged. She seemed to have very little insight that she had taken a potentially significantly dangerous overdose. I spoke to the care team and we agreed that the patient's lack of insight into the significance of what she had done was very poor and that keeping the patient on a section 12 because of her unreliablity and failure to understand the significance of a previous actions was reasonable. The patient will therefore be placed in physician observation pending disposition by the care team. HCP invoked due to advanced dementia Medications Administered Discontinued Medications Generic Name Dose Route Start Last Admin Trade Name Freq PRN Reason Stop Dose Admin Sodium Chloride 1,000 mls @ 999 mls/hr 11/24/24 14:15 11/24/24 15:35 Ns IVCONT 11/24/24 15:15 Infused .Q1H1M RUSLAN Infusion Medical Decision Making Medical Decision Making [facility] Narrative: Patient is here with overdose of clonazepam we will check acetaminophen level aspirin level alcohol level with consult poison control we will watch closely for clinical deterioration Differential Diagnosis Differential Diagnoses: The differential diagnosis associated with the presentation includes Overdose of clonazepam/alcohol abuse/alcohol intoxication Lab Data [facility] Lab Attestation statement: I reviewed the patient's lab results. 11/24/24 14:34 11/24/24 14:34 Labs: Lab Results 11/24/24 11/24/24 Range/Units 14:34 19:14 WBC 7.1 (4.8-10.8) X10*3/uL RBC 4.27 (4.20-5.50) X10*6/uL Hgb 13.6 (12.0-16.0) g/dl Hct 39.4 (37.0-47.0) % MCV 92.3 (80.0-98.0) fL MCH 31.9 (27.0-33.0) pg MCHC 34.5 (31.0-35.0) g/dl RDW 14.2 (11.0-16.0) % Plt Count 168 (160-400) X10*3/uL MPV 8.6 L (9.4-12.3) fL Immature Gran % (Auto) 0.3 (0.0-0.4) % Neut % (Auto) 48.7 (45-73) % Lymph % (Auto) 44.7 H (20-40) % Elk % (Auto) 5.2 (2-11) % Eos % (Auto) 0.7 (0-4) % Baso % (Auto) 0.4 (0-2) % Lymph # (Auto) 3.2 (1.2-4.9) X10*3/uL Elk # (Auto) 0.4 (0.1-1.2) X10*3/uL Eos # (Auto) 0.1 (0.0-0.4) X10*3/uL Baso # (Auto) 0.0 (0.0-0.2) X10*3/uL Abs Immat Gran (auto) 0.02 (0.00-0.03) X10*3/uL Absolute Neuts (auto) 3.5 (2.0-8.3) x10*3/uL Absolute Nucleated RBC 0.000 (0.0-0.012) X10*3/uL Nucleated RBC % (auto) 0.0 (0.0-0.2) /100WBC Sodium 135 (135-145) mmol/L Potassium 3.7 (3.3-5.1) mmol/L Chloride 104 (96-108) mmol/L Carbon Dioxide 26 (22-29) mmol/L Anion Gap 9 L (12-20) BUN 6 L (9-16) mg/dL Creatinine 0.68 (0.5-1.4) mg/dL Estim Creat Clear Calc 90.2 Estimated GFR > 60 Random Glucose 65 (60-115) mg/dL Calcium 8.9 (8.4-10.2) mg/dL Total Bilirubin 0.9 (0.0-1.0) mg/dL AST 22 (5-31) U/L ALT 15 (0-31) U/L Alkaline Phosphatase 89 (39-117) U/L Total Protein 6.1 L (6.5-8.0) g/dL Albumin 3.8 (3.5-5.0) g/dL Urine Color Yellow Urine Appearance Clear Urine pH 6.0 (5.0-9.0) Ur Specific [place] <= 1.005 (1.005-1.025) Urine Protein Negative (Neg-Trace) mg/dL Urine Glucose (UA) Negative (Negative) mg/dL Urine Ketones Negative (Negative) mg/dL Urine Blood Negative (Negative) Urine Nitrite Negative (Negative) Ur Leukocyte Esterase Negative (Negative) Urine RBC 0-2 (0-2) /HPF Urine WBC 0-5 (0-5) /HPF Ur Squamous Epith Cells 0-2 (0-2) /HPF Urine Bacteria None Seen (None Seen) Hyaline Casts 0-2 (0-2) /LPF Salicylates < 5.0 L (15-30) mg/dL Urine Opiates Screen Not Detected (Not Detect) Ur Buprenorphine Scrn Not Detected (Not Detect) ng/mL Ur Oxycodone Screen Not Detected (Not Detect) ng/mL Urine Methadone Screen Not Detected (Not Detect) ng/mL Urine Fentanyl Screen Not Detected (Not Detect) Acetaminophen < 3 (<30) mcg/mL Ur Barbiturates Screen Not Detected (Not Detect) Ur Phencyclidine Scrn Not Detected (Not Detect) Ur Amphetamines Screen Not Detected (Not Detect) U Benzodiazepines Scrn Not Detected (Not Detect) Urine Cocaine Screen Not Detected (Not Detect) U Marijuana (THC) Screen Not Detected (Not Detect) Ethyl Alcohol 151 mg/dL Independent Historian Clinical information obtained from an independent historian. History obtained from or confirmed by: EMS and Other EMS Discharge Plan Discharge Clinical Impression: Overdose of clonazepam Patient Disposition: Admitted As Inpatient Interventions: [place]-Suicide Risk Severity Scale Last Done: 11/24/24 14:00 Admission Worksheet (ED) Last Done: 11/25/24 13:55
--- NOTE | 2024-11-24 14:14 | PC.NURSE ---
Pt comes to ED today via EMS for SI and witnessed ingestion of a handful/approx. 20 of Klonopin tablets. Pt reports she has Rx Klonopin 1mg and has been experiencing increase stress and pressure from her family and feels as though she has no support. She reports she feels tired of dealing with it and took the Klonopins with ETOH (3 nips and 2 beers) as an attempt to take her life. Upon arrival Pt is A&Ox3, VSS, and afebrile. Skin is warm and dry Breaths and speech are clear, concise, and unlabored. Facial symmetry noted. Provider at bedside. Pt changed over to hospital attire per protocol. Belongings placed on shelf 3 in [place]. Call placed to Poison Control @ Spoke with Poison Specialist Jessica, review of Pts background and current orders placed by Dr. Best. Jessica advises to add the following interventions: --Urine Toxicology --Magnesium level Jessica reports that care will be symptom supportive based. She states that Activated Charcoal and Flumazenil is not indicated in this situation. Pt will likely require overnight observation as the half life of Klonopin is about 30-40 hours. Cardiac monitoring is recommended and capnography PRN. Poison control case will remain open and a specialist will be checking in periodically on Pts progress. Poison Control consult shared verbally with Dr. Best. Dr. Best made aware of additional recommendations made.
[2024-11-24] MEDS: 0.9 % Sodium Chloride 1,000 ML 999 ML IVCONT (14:34)
[2024-11-24 14:41] LABS: MANUAL DIFF FLAG NO
[2024-11-24 14:47] LABS: Basophils Percent Auto 0.4 % (0-2); Eosinophils Absolute Auto 0.1 X10*3/uL (0.0-0.4); Eosinophils Percent Auto 0.7 % (0-4); Hematocrit 39.4 % (37.0-47.0); Hemoglobin 13.6 g/dl (12.0-16.0); Imm Gran Abs Auto 0.02 X10*3/uL (0.00-0.03); Imm Gran Pct Auto 0.3 % (0.0-0.4); Lymphocytes Absolute Auto 3.2 X10*3/uL (1.2-4.9); Lymphocytes Percent Auto 44.7 % (20-40); Mean Corpuscular HGB Conc 34.5 g/dl (31.0-35.0); Mean Corpuscular Hemoglobin 31.9 pg (27.0-33.0); Mean Corpuscular Volume 92.3 fL (80.0-98.0); Mean Platelet Volume 8.6 fL (9.4-12.3); Monocytes Absolute Auto 0.4 X10*3/uL (0.1-1.2); Monocytes Percent Auto 5.2 % (2-11); Neutrophils Absolute Auto 3.5 x10*3/uL (2.0-8.3); Neutrophils Percent Auto 48.7 % (45-73); Platelet Count 168 X10*3/uL (160-400); Red Blood Count 4.27 X10*6/uL (4.20-5.50); Red Cell Distribution Width 14.2 % (11.0-16.0); White Blood Count 7.1 X10*3/uL (4.8-10.8)
[2024-11-24 15:00] LABS: Alanine Aminotransferase 15 U/L (0-31); Albumin Level 3.8 g/dL (3.5-5.0); Alkaline Phosphatase 89 U/L (39-117); Anion Gap 9 (12-20); Aspartate Amino Transferase 22 U/L (5-31); Bilirubin Total 0.9 mg/dL (0.0-1.0); Blood Urea Nitrogen 6 mg/dL (9-16); Calcium 8.9 mg/dL (8.4-10.2); Carbon Dioxide 26 mmol/L (22-29); Chloride 104 mmol/L (96-108); Creatinine Clr Calc Pharmacy 90.2; Estimated Glomerular Filt Rate > 60; Ethanol 151 mg/dL; Glucose Random 65 mg/dL (60-115); Potassium 3.7 mmol/L (3.3-5.1); Sodium 135 mmol/L (135-145); Total Protein 6.1 g/dL (6.5-8.0)
[2024-11-24 15:04] LABS: Acetaminophen LAB < 3 mcg/mL (<30); Salicylate < 5.0 mg/dL (15-30)
[2024-11-24 15:44] VITALS: BP 106/72; PULSE 56; RESP 18; TEMP 36.5; O2SAT 99
--- NOTE | 2024-11-24 16:01 | PC.NURSE ---
This RN called to bedside by sitter as Pt was threatening to pull out her IV and leave. Pt reports she is hungry/starving and wants food. Pt advised that PO intake was initially withheld d/t concerns for vomiting, choking, and/or aspiration. Per Dr. Best, Pt is able to eat at this time. Pt provided with 2 sandwiches, gingerale, and pudding. Pt will be observed for about another hour per Dr. Best and possibly medically cleared. Discussed with financial auditor about placement in [facility] Pod while Care Team eval pending given Pts exit seeking behavior. At this time, Pt is A&Ox3 She is agitated. Skin is warm and dry Breaths and speech are unlabored. Dispo pending.
--- NOTE | 2024-11-24 16:27 | PC.NURSE ---
Call received from Poison Control--spoke with Hamida who is inquires about an update on Pt status. Review of Pts care up to this time reviewed. Hamida recommends Pt be monitored for 4-6 hrs to ensure Pt is back to baseline. Follow up EKG recommended as well. Recommendations reviewed with ED provider.
--- OUTSIDE RECORDS SUMMARY | 2024-11-24 16:57 | XMS_ITS | Clinical Summary ---
Author Organization [facility] Address [address] [place] [id number] Care Team Providers Care Photograph Developer Name Role Phone Maykel Serrano MD Unavailable [phone] Siobhan Cota MD Unavailable Unavailable None, Pcp Primary Care Provider Unavailabl e Allergies Active Allergy Reactions Criticality Noted Date Comments Meperidine Unknown 12/29/2012 Encounters Date Type Department Care Team Description 10/28/2024 5:25 PM EDT - 10/28/2024 10:58 PM EDT Emergency [facility] [address] [place] [address] [phone] Sapna Ulloa NP Meenan, Kelly A, PA [...] Description 05/04/2025 11:00 AM EDT Office Visit [facility] [address] [facility] [address] [place] [address] Tima Alicea III, MD [address] [place] [address] 2 [place] [address] In Person with Physician Health [...] Exposure to Ionizing Radiation was submitted to [employer]'s DoseWise Dose Index Registry and MIPS Measure [...] Exposure to Ionizing Radiation was submitted to [employer]'s DoseWise Dose Index Registry and MIPS Measure [...] Exposure to Ionizing Radiation was submitted to [place]'s DoseWise Dose Index Registry and MIPS Measure [...] infarction, or mass effect. Sapna Ulloa NP [facility] ORDERABLES Final Result * 6-Acetylmorphine Screen, Urine (10/28/2024 6:11 PM EDT) 6-Aceytlmorphine Screen, Urine Negative Negative MAYS [id number] 10/28/2024 6:57 PM EDT [facility] Comment: 6-acetylmorphine cutoff is 10 ng/mL 6-acetylmorphine Add on order [id number] Opiates and Oxycodone, Urine, Confirmation, if confirmation desired. Results should be used for medical purposes only and not for any legal or employment evaluative purposes. Urine URINE SPECIMEN / Unknown Collection / Unknown 10/28/2024 6:11 PM EDT 10/28/2024 6:11 PM EDT Sapna Artemio MARITIME GUARD URINE ORDERABLES Final Result [facility] [address] [place] [address], [place] [phone] * Drug Screen, Urine (10/28/2024 6:11 PM EDT) [facility] Amphetamines Screen, Urine Negative Negative 10/28/2024 7:00 PM EDT [facility] Barbiturates Screen, Urine Negative Negative 10/28/2024 7:00 PM EDT [facility] Benzodiazepine Screen, Urine Negative Negative 10/[facility]24 [facility] Buprenorphine Screen, Urine Negative Negative 10/[facility]24 [facility] Cannabinoids Screen, Urine Negative Negative 10/28/2024 7:00 PM [facility] Cocaine Metabolite Screen, Urine Negative Negative 10/28/2024 7:00 PM [facility] Methadone Screen, Urine Negative Negative 10/28/2024 7:00 PM [facility] Methamphetamine, Urine Negative Negative 10/28/2024 7:00 PM [facility] Opiates Screen, Urine Negative Negative 10/28/2024 7:00 PM [facility] Oxycodone Screen, Urine Negative Negative 10/28/2024 7:00 PM [facility] TCA, Urine Negative Negative 10/28/2024 7:00 PM [facility] Creatinine, Sherif Urine 26.2 No Established Reference Range mg/dL MAYS [id number] 10/28/2024 7:00 PM [facility] Fentanyl Screen, Urine Negative Negative MAYS [id number] 10/28/2024 7:00 PM [facility] Tramadol Screen, Urine Negative Negative MAYS [id number] 10/28/2024 7:00 PM [facility] 6-Aceytlmorphine Screen, Urine Negative Negative MAYS [id number] 10/28/2024 7:00 PM [facility] Urine URINE SPECIMEN / Unknown Collection / Unknown 10/28/2024 6:11 PM EDT 10/28/2024 6:11 PM EDT [facility] - 10/28/2024 7:00 PM [...] absinence. Thresholds are established by the test head holder. ??Drug levels below thresholds will be reported as negative. ??This is an antibody-antigen methods screening test and has the potential for false positive results caused by other drugs, medications and supplements with similar structures, if results are discordant clinically. Sapna Ulloa URINE ORDERABLES Final Result Performing Organization Address City/State/[facility] Co de Phone Number [facility] [address] [place] [address], * Tramadol Screen, Urine (10/28/2024 6:11 PM EDT) [facility] Tramadol Screen, Urine Negative Negative [place]erdle [id number] 10/28/2024 6:57 PM EDT [facility] Comment: Tramadol cutoff is 200 ng/mL Tramadol. Add-on order [id number] Tramadol Confirmation, Urine, if confirmation desired. Results should be used for medical purposes only and not for any legal or employment evaluative purposes. Urine URINE SPECIMEN / Unknown Collection / Unknown 10/28/2024 6:11 PM EDT 10/28/2024 6:11 PM EDT [employer] URINE ORDERABLES Final Result Performing Organization Address City/[facility]/ZIP Co de Phone Number [facility] [address] [place] [address], [place] [phone] * Fentanyl Screen, Urine (10/28/2024 6:11 PM EDT) [facility] Fentanyl Screen, Urine Negative Negative MAYS [id number] 10/28/2024 6:57 PM EDT [facility] Urine URINE SPECIMEN / Unknown Collection / Unknown 10/28/2024 6:11 PM EDT 10/28/2024 6:11 PM EDT Sapna Ulloa MARITIME GUARD URINE ORDERABLES Final Result Performing Organization Address [facility] Co de Phone Number [facility] [address] [place] [address], [place] [phone] * (ABNORMAL) CBC and Differential (10/28/2024 5:51 PM EDT) [facility] WBC 10.60 4.00 - 11.00 K/uL 10/28/2024 6:02 PM EDT [facility] RBC 4.72 4.00 - 5.20 M/uL 10/28/2024 6:02 PM EDT [facility] Hemoglobin 15.1(H) 12.0 - 15.0 g/dL 10/28/2024 6:02 PM EDT [facility] Hematocrit 43.4 36.0 - 45.0 % 10/28/2024 6:02 PM EDT [facility] MCH 32.0 23.0 - 37.0 pg 10/28/2024 6:02 PM EDT [facility] MCHC 34.8 29.0 - 38.0 g/dL 10/28/2024 6:02 PM EDT [facility] MCV 92 82 - 98 fL 10/28/2024 6:02 PM EDT [facility] RDW 12.6 11.5 - 15.0 % 10/28/2024 6:02 PM EDT [facility] Platelet Count 161 150 - 450 K/uL 10/28/2024 6:02 PM EDT [facility] MPV 9.2 8.0 - 14.0 fL 10/28/2024 6:02 PM EDT [facility] Neutrophil 50.2 % 10/28/2024 6:02 PM EDT [facility] Lymphocyte 42.1 % 10/28/2024 6:02 PM EDT [facility] Monocyte 5.8 % 10/28/2024 6:02 PM EDT [facility] Eosinophil 0.9 % 10/28/2024 6:02 PM EDT [facility] Basophil 0.8 % 10/28/2024 6:02 PM EDT [facility] Immature Granulocyte ([place], Myelo, Promyelocyte) 0.2 % 10/28/2024 6:02 PM EDT [facility] Absolute Neutrophil Count 5.32 1.50 - 7.70 K/uL 10/28/2024 6:[facility] Absolute Immature Granulocyte ([place]nut[place], Myelo, Promyelocyte) 0.02 0.00 - 0.09 K/uL 10/28/2024 6:02 PM EDT [facility] Absolute Lymphocyte Count 4.46 1.00 - 5.00 K/uL 10/28/2024 6:02 PM EDT [facility] Absolute Monocyte Count 0.61 0.10 - 1.00 K/uL 10/28/2024 6:02 PM [facility] Absolute Eosinophil Count 0.10 0.00 - 0.70 K/uL 10/28/2024 6:02 PM [facility] Absolute Basophil Count 0.09 0.00 - 0.20 K/uL 10/28/2024 6:02 PM [facility] Blood PERIPHERAL BLOOD SPECIMEN / Unknown Venipuncture / Unknown 10/28/2024 5:51 PM EDT 10/28/2024 5:51 PM EDT us Sapna Ulloa NP LAB BLOOD ORDERABLES Final Res ult [facility] [address] [place] [address], * (ABNORMAL) Plasma Toxicology Screen (10/28/2024 5:51 PM EDT) Acetaminophen Result,Blood <3(L) Therapuetic Range 10-30 ug/mL [place] [id number] 10/28/2024 6:48 PM EDT [facility] Alcohol 207(HH) <10 mg/dL [address] 10/28/2024 6:48 PM EDT [facility] Salicylate Level, Blood <5(L) 15 - <30 mg/dL [address] 10/28/2024 6:48 PM EDT [facility] Blood PERIPHERAL BLOOD SPECIMEN / Unknown Venipuncture / Unknown 10/28/2024 5:51 PM EDT 10/28/2024 5:51 PM EDT us Sapna Chandrahane MARITIME GUARD LAB BLOOD ORDERABLES Final Res ult Performing Organization Address [facility]/ZIP Co de Phone Number [address] [address], [place] [phone] * Gold Top (10/28/2024 5:51 PM EDT) Gold Top Tube Received 10/28/2024 7:02 PM EDT [facility] Blood PERIPHERAL BLOOD SPECIMEN / Unknown Venipuncture / Unknown 10/28/2024 5:51 PM EDT 10/28/2024 5:51 PM EDT us Sapna Toureramona BANERJEE LAB BLOOD ORDERABLES Final Res ult Performing Organization Address City/[facility]/ZIP Co de Phone Number [facility] [address] [place] [address], [place] [phone] * Mint Green Top (10/28/2024 5:51 PM EDT) PST Tube Received 10/28/2024 7:02 PM EDT [facility] Blood PERIPHERAL BLOOD SPECIMEN / Unknown Venipuncture / Unknown 10/28/2024 5:51 PM EDT 10/28/2024 5:51 PM EDT us Sapna Ulloa MARITIME GUARD LAB BLOOD ORDERABLES Final Res ult [facility] [address] [place] [address], [place] [phone] * Red Top (10/28/2024 5:51 PM EDT) Red Top Tube Received 10/28/2024 7:02 PM EDT [facility] Blood PERIPHERAL BLOOD SPECIMEN / Unknown Venipuncture / Unknown 10/28/2024 5:51 PM EDT 10/28/2024 5:51 PM EDT Sapna Touree MARITIME GUARD LAB BLOOD ORDERABLES Final Res ult Performing Organization Address [facility] Co de Phone Number [facility] [address] [place] [address], [place] [phone] * Blue Top (10/28/2024 5:51 PM EDT) Blue Top Tube Received 10/28/2024 7:02 PM EDT [facility] Blood PERIPHERAL BLOOD SPECIMEN / Unknown Venipuncture / Unknown 10/28/2024 5:51 PM EDT 10/28/2024 5:51 PM EDT Sapna Artemio MARITIME GUARD LAB BLOOD ORDERABLES Final Res ult Performing Organization Address [facility] de Phone Number [facility] [address] [place] [address], [place] [phone] * (ABNORMAL) Basic Metabolic Panel (10/28/2024 5:51 PM EDT) Pathologist [facility] Sodium 136 134 - 144 mmol/L MAYS [id number] 10/28/2024 6:21 PM EDT [facility] Potassium 3.4 3.2 - 5.1 mmol/L MAYS [id number] 10/28/2024 6:21 PM EDT [facility] Comment:Samples tested in se rum may exhibit a higher potassium value than those tested on plasma. Our current range is based on plasma testing. Chloride 106 97 - 109 mmol/L MAYS [id number] 10/28/2024 6:21 PM EDT [facility] Total CO2/Bicarbonat e 18(L) 20 - 32 mmol/L [address] 10/28/2024 6:21 PM EDT [facility] Anion Gap 12 5 - 15 mmol/L [address] 10/28/2024 6:21 PM EDT [facility] BUN 6(L) 7 - 20 mg/dL [address] 10/28/2024 6:21 PM EDT [facility] Creatinine, Blood 0.76 0.60 - 1.10 mg/dL [address] 10/28/2024 6:21 PM EDT [facility] Glucose, Blood 87 70 - 110 mg/dL [address] 10/28/2024 6:21 PM EDT [facility] Calcium 9.8 8.5 - 10.5 mg/dL [address] 10/28/2024 6:21 PM EDT [facility] Estimated GFR(CKD-EPI) 86 >=60 mL/min/BSA [address] 10/28/2024 6:21 PM EDT [facility] Blood PERIPHERAL BLOOD SPECIMEN / Unknown Venipuncture / Unknown 10/28/2024 5:51 PM EDT 10/28/2024 5:51 PM EDT Sapna Ulola MARITIME GUARD LAB BLOOD ORDERABLES Final Res ult [address] [address], * ECG 12 lead (10/28/2024 5:46 PM EDT) [facility] Ventricular Heart Rate 77 BPM EKG WIN Atrial Heart Rate 77 BPM EKG WIN CA Interval 158 ms EKG WIN QRSD Interval 76 ms EKG WIN QT Interval 422 ms EKG WIN QTC Interval 477 ms EKG WIN P Alb[place] 79 degrees EKG WIN R [place] 47 degrees EKG WIN T Wave [place] 118 degrees EKG WIN 10/28/2024 5:46 PM [...] ECG ORDERABLES Final Result EKG WIN [address] [place] [address] * LB PAP, Screen, reflex HPV if ASC-US (11/28/2008) 11/28/2008 11/28/2008 7:4 9 AM EDT Narrative CONVERSION FROM [facility] - 12/07/2008 11:46 AM EDT ?CYTOLOGY DIAGNOSIS [...] PATHOLOGY/CYTOLOGY ORDERABLES Final Result Performing Organization Address [facility] Co de Phone Number CONVERSION FROM [place] from Last 3 Months or Most Recently Relevant to Health Maintenance Insurance [place] [employer]AGE [employer]ARE [employer]VANTAGE [employer]VANTAGE Care Teams Photograph Developer Relationship Specialty Start Date End Date Maykel Serrano MD [address] [place] [phone] PCP - Insurance Assigned PCP 10/20/24 None, MD Kaye PCP - General 10/28/24 Siobhan Cota MD 10/21/17
--- OUTSIDE RECORDS SUMMARY | 2024-11-24 16:57 | XMS_ITS | Clinical Summary ---
Author Organization [facility] it Address [address] [place] [address] Care Team Providers Care Automobile Detailer Name Role Phone Vinita Mcgill MD Primary Care Provider [phone] Medical History Medical History Date Comments History [...] - 2023-2 5 season) 2024 Influenza Vaccine (Season Ended) 2025 RSV Immunization Adult Patie nts (1 - 1-dose 75+ series) 2040 HIB [...] age to complete this topic Meningococcal B Vaccine Aged Out No l onger eligible based on patient's age to complete this topic RSV Immunization Patients Un vickie 20 months Aged Out No longer eligible b ased on patient's age to complete this topic Varicella Vaccines Aged Out No longer eligible based on patient's age to complete this topic Care Teams Automobile Detailer Relationship Specialty Start Date End Date Vinita Mcgill MD PCP - General Internal Medicine 04/27/19
--- NOTE | 2024-11-24 17:34 | PC.NURSE ---
2nd follow up call received from Poison Control inquiring about Pts status. All questions answered to satisfaction and no additional recommendations received. Caller ended phone call prior to this RN obtaining name of caller.
[2024-11-24 19:10] VITALS: BP 114/65; PULSE 72; RESP 18; TEMP 36.1; O2SAT 95
[2024-11-24 19:20] LABS: Appearance Urine Clear; Color Urine Yellow; Glucose Urine UA Negative (Negative); Leukocyte Esterase Urine Negative (Negative); Nitrite Urine Negative (Negative); Specific Gravity - Urine <= 1.005 (1.005-1.025); Urine Blood Negative (Negative); Urine Ketones Negative (Negative); Urine Protein Negative (Neg-Trace)
[2024-11-24 19:25] LABS: Bacteria Urine None Seen (None Seen); Hyaline Casts Urine 0-2 /LPF (0-2); RBC Urine 0-2 /HPF (0-2); Squamous Epithelial Cell Urine 0-2 /HPF (0-2); WBC Urine 0-5 /HPF (0-5)
[2024-11-24 19:35] LABS: Amphetamine Screen Urine Not Detected (Not Detect); Barbiturates, Urine Not Detected (Not Detect); Benzodiazepines Screen Urine Not Detected (Not Detect); Buprenorphine Scr Not Detected (Not Detect); Cannabinoid Screen Urine Not Detected (Not Detect); Cocaine Screen Urine Not Detected (Not Detect); Fentanyl, urine Not Detected (Not Detect); Methadone Screen, Urine Not Detected (Not Detect); Opiate Screen Urine Not Detected (Not Detect); Oxycodone Screen Urine Not Detected (Not Detect); Phencyclidine Screen Urine Not Detected (Not Detect)
--- NOTE | 2024-11-24 21:04 | PC.NURSE ---
Pt alert and awake at the bedside requesting to leave AMA. Plan of care explained to pt. Pt states not wanting to wait until the morning to be re evaluated . MD aware and at bedside. Care team also at bedside.
[2024-11-24 22:13] VITALS: BP 93/55; PULSE 61; RESP 16; TEMP 36.1; O2SAT 98
[2024-11-25 03:00] VITALS: RESP 16; TEMP 36.7
--- NOTE | 2024-11-25 06:21 | PC.NURSE ---
Pt slept throughout the night with 1:1 sitter at bedside. No apparent distress noted. Breaths even regular and unlabored. Monitoring is ongoing.
--- NOTE | 2024-11-25 07:52 | PC.NURSE ---
pharmacy called to do med req per request of psych floor
[2024-11-25 08:22] VITALS: BP 107/62; PULSE 59; RESP 20; TEMP 36.1; O2SAT 94
--- NOTE | 2024-11-25 08:26 | PC.NURSE ---
patient a&ox3, vss- pharmacy working on med req- pt takes meds for htn she stated. Lungs clear, rr equal/non labored, pt currently denying si/hi, 1:1 sitter at bedside, call lomax within reach, plan of care ongoing
--- NOTE | 2024-11-25 09:39 | PHA.MEDREC ---
Addendum entered by Johnathon Stringer 11/25/24 10:15: reviewed Original Note: Pharmacy Consult ? Medication Reconciliation Pharmacy has completed the medication reconciliation. Spoke to patient to confirm med list. Patient was able to confirm all her medications.
--- NOTE | 2024-11-25 11:33 | PC.NURSE ---
Pt arrives to pod from Main ED. Pt uses the phone briefly then returns to her room where is is observed resting comfortably. NAD noted at this time.
--- NOTE | 2024-11-25 12:05 | MHC.CARE ---
Thomas Taylor called to state that Swati cannot return to stay with upon D/C. He reported he was allowing Swati to stay with him for 3 weeks and she attempted suicide twice. She is not welcome to return to his home and can call the glue mounter operator to moss picker her belongings. He also stated management at the [facility] plans to get a no trespass order against Swati.
[2024-11-25 14:39] VITALS: BP 139/64; PULSE 59; RESP 16; TEMP 36.4; O2SAT 99
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
[2024-11-25] MEDS: busPIRone HCl 5 MG TABLET 15 MG PO ×2 (16:40→20:09)
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
--- NOTE | 2024-11-25 18:14 | PC.NURSE ---
Pt signed a 3 day 11/25, up on Thursday 11/30
[2024-11-25 20:00] VITALS: BP 124/62; PULSE 61; RESP 16; TEMP 36.8; O2SAT 96
[2024-11-25 20:08] VITALS: BP 124/62
[2024-11-25] MEDS: Prazosin HCL 1 MG CAPSULE 4 MG PO (20:08)
[2024-11-25] MEDS: traZODone HCL 50 MG TABLET PO (20:09)
[2024-11-25] MEDS: hydrOXYzine HCL 25 MG TABLET PO (20:10)
[2024-11-26 07:15] VITALS: BP 107/56; PULSE 64; RESP 14; TEMP 36.4; O2SAT 94
[2024-11-26 09:28] VITALS: BP 118/60
[2024-11-26] MEDS: Valsartan 320 MG TABLET PO (09:28)
[2024-11-26] MEDS: Thiamine HCL 100 MG TABLET PO (09:28)
[2024-11-26] MEDS: buPROPion HCl XL 150 MG TAB.ER.24H PO (09:28)
[2024-11-26] MEDS: Escitalopram Oxalate 20 MG TABLET PO (09:28)
[2024-11-26] MEDS: busPIRone HCl 5 MG TABLET 15 MG PO ×3 (09:29→20:50)
[2024-11-26] MEDS: hydrOXYzine HCL 25 MG TABLET PO ×2 (12:46→20:50)
--- NOTE | 2024-11-26 14:13 | P.PNPSI_ITS ---
Subjective Subjective Date of Service: 11/26/24 Reason For Visit: Crisis Interim History: calm, cooperative. no questions or complaints. discussed withdrawal Sx to watch out for, reasons to hold both ambien and klonopin. pt provided narrative of her recent dangerous behaviors. per staff, not scoring on CIWA. slept well. 3-day up friday. Mental Status Exam Mental Status Exam Narrative: Pt is alert and oriented; behavior is cooperative, calm, guarded; dressed in casual attire; mood is described as anxious ; eye contact appropriate; Speech is normal rate, volume and not pressured; thought process is organized; Thought content is on tx; denies SI/HI/VH/AH. Diagnostics Vital Signs (24Hr): Vital Signs - 24 hr 11/25/24 14:39 11/25/24 20:00 11/25/24 20:08 Temperature 97.6 F 98.3 F Pulse Rate 59 61 Respiratory Rate 16 16 Blood Pressure 139/64 124/62 124/62 Pulse Oximetry 99 96 Oxygen Delivery Method Room Air 11/26/24 07:15 11/26/24 09:28 Temperature 97.6 F Pulse Rate 64 Respiratory Rate 14 Blood Pressure 107/56 L 118/60 Pulse Oximetry 94 Oxygen Delivery Method Room Air BMI result Body Mass Index 25.4 Labs 11/24/24 14:34 11/24/24 14:34 Labs: Laboratory Results - last 48 hr 11/24/24 11/24/24 14:34 19:14 WBC 7.1 RBC 4.27 Hgb 13.6 Hct 39.4 MCV 92.3 MCH 31.9 MCHC 34.5 RDW 14.2 Plt Count 168 MPV 8.6 L Immature Gran % (Auto) 0.3 Neut % (Auto) 48.7 Lymph % (Auto) 44.7 H St[place] % (Auto) 5.2 Eos % (Auto) 0.7 Baso % (Auto) 0.4 Lymph # (Auto) 3.2 [place] # (Auto) 0.4 Eos # (Auto) 0.1 Baso # (Auto) 0.0 Abs Immat Gran (auto) 0.02 Absolute Neuts (auto) 3.5 Absolute Nucleated RBC 0.000 Nucleated RBC % (auto) 0.0 Sodium 135 Potassium 3.7 Chloride 104 Carbon Dioxide 26 Anion Gap 9 L BUN 6 L Creatinine 0.68 Estim Creat Clear Calc 90.2 Estimated GFR > 60 Random Glucose 65 Calcium 8.9 Total Bilirubin 0.9 AST 22 ALT 15 Alkaline Phosphatase 89 Total Protein 6.1 L Albumin 3.8 Urine Color Yellow Urine Appearance Clear Urine pH 6.0 Ur Specific Issue <= 1.005 Urine Protein Negative Urine Glucose (UA) Negative Urine Ketones Negative Urine Blood Negative Urine Nitrite Negative Ur Leukocyte Esterase Negative Urine RBC 0-2 Urine WBC 0-5 Ur Squamous Epith Cells 0-2 Urine Bacteria None Seen Hyaline Casts 0-2 Salicylates < 5.0 L Urine Opiates Screen Not Detected Ur Buprenorphine Scrn Not Detected Ur Oxycodone Screen Not Detected Urine Methadone Screen Not Detected Urine Fentanyl Screen Not Detected Acetaminophen < 3 Ur Barbiturates Screen Not Detected Ur Phencyclidine Scrn Not Detected Ur Amphetamines Screen Not Detected U Benzodiazepines Scrn Not Detected Urine Cocaine Screen Not Detected U Marijuana (THC) Screen Not Detected Ethyl Alcohol 151 Medications Medications Current Medications Acetaminophen (Acetaminophen 325 Mg Tablet) 650 mg PO Q6H PRN PRN Reason: Headache/Pain, Scale 1-10 Al Hydroxide/Mg Hydroxide (Magnesium Hydrox/Alum Hydrox 30 Ml Oral.Susp) 30 ml PO Q6H PRN PRN Reason: Heartburn/Nausea Bupropion HCl (Bupropion Hcl Xl 150 Mg Tab.Er.24h) 150 mg PO DAILY [facility] Last Admin: 11/26/24 09:28 Dose: 150 mg Buspirone HCl (Buspirone Hcl 5 Mg Tablet) 15 mg PO TID [facility] Last Admin: 11/26/24 09:29 Dose: 15 mg Escitalopram Oxalate (Escitalopram Oxalate 20 Mg Tablet) 20 mg PO DAILY [facility] Last Admin: 11/26/24 09:28 Dose: 20 mg Hydroxyzine HCl (Hydroxyzine Hcl 25 Mg Tablet) 25 mg PO Q6H PRN PRN Reason: mild anxiety Last Admin: 11/26/24 12:46 Dose: 25 mg Lorazepam (Lorazepam 1 Mg Tablet) 1 mg PO Q2H PRN PRN Reason: CIWA 8-11 Lorazepam (Lorazepam 1 Mg Tablet) 2 mg PO Q2H PRN PRN Reason: CIWA 12-15 Lorazepam (Lorazepam 1 Mg Tablet) 3 mg PO Q2H PRN PRN Reason: CIWA > 15, and call Magnesium Hydroxide (Milk Of Magnesia 30 Ml Oral.Susp) 30 ml PO DAILY PRN PRN Reason: Constipation Nicotine (Nicotine 21 Mg Patch.Td24) 21 mg TRANSDERMA DAILY [facility] Last Admin: 11/26/24 09:30 Dose: Not Given Nicotine Polacrilex (Nicotine Polacrilex 2 Mg Gum) 4 mg BUCCAL Q2H PRN PRN Reason: Nicotine Cravings Prazosin HCl (Prazosin Hcl 1 Mg Capsule) 4 mg PO BEDTIME [facility]; Protocol Last Admin: 11/25/24 20:08 Dose: 4 mg Thiamine HCl (Thiamine Hcl 100 Mg Tablet) 100 mg PO DAILY [facility] Last Admin: 11/26/24 09:28 Dose: 100 mg Trazodone HCl (Trazodone Hcl 50 Mg Tablet) 50 mg PO BEDTIME MRX1 PRN PRN Reason: Insomnia Last Admin: 11/25/24 20:09 Dose: 50 mg Valsartan (Valsartan 320 Mg Tablet) 320 mg PO DAILY [facility]; Protocol Last Admin: 11/26/24 09:28 Dose: 320 mg Allergies Allergies Allergy/AdvReac Type Severity Reaction Status Date / Time meperidine [From DEMEROL] Allergy Unknown UNKNOWN Verified 11/24/24 14:03 Assessment & Plan Assessment & Plan (1) MDD (major depressive disorder), recurrent episode: Qualifiers: Major depression episode severity: unspecified Qualified Code(s): F33.9 - Major depressive disorder, recurrent, unspecified Status: Acute Code(s): F33.9 - Major depressive disorder, recurrent, unspecified (2) Post traumatic stress disorder (PTSD): Status: Acute Code(s): F43.10 - Post-traumatic stress disorder, unspecified (3) Alcohol use disorder: Status: Acute Code(s): F10.90 - Alcohol use, unspecified, uncomplicated Plan Patient is a 59-year-old female with history of MDD, PTSD, alcohol use disorder who was brought into ER due to intentionally overdosing on 20 tablets of Klonopin secondary to increased life stressors. 11/25: CIWA protocol. Continue home medications aside from klonopin and ambien. Encourage groups. Discharge planning. 11/26: not scoring on CIWA, but due to klonopin's long half life, it may take several days for withdrawal to begin in earnest. slept well without ambien. 3- day up next friday. continue current mgmt. Reason for continued inpatient stay Substantial Risk for: harm to self Time Spent With Patient Time: Total time managing care of this patient today __25__ minutes.
--- NOTE | 2024-11-26 16:14 | MHC.RECOVRN ---
AUDIT-C Brief Intervention Pt had positive screen for unhealthy alcohol use on admission, subsequently met with t/w to discuss alcohol use and recovery supports/options. This typewriter tester met with patient to discuss current alcohol use and concerns related to increased risk of alcohol related problems. Pt reports having been in recovery for 6+ months, however, had 2 nips in August. Discussed how alcohol use has impacted health, including negative impact on mental health. Withdrawal History: denies history of withdrawal seizures Treatment History: 2 Sect 35, IOP Supports: AA Discussed risk reduction strategies including drinking below the recommended limit. Provided pt with written resources including information on inpatient and outpatient treatment, JACIEL, harm reduction, and recovery coaching. Pt plans to continue attending AA at least 6 days/week after discharge. Pt declines JACIEL/appt for JACIEL. Pt provided with t/w contact information if questions or concerns arise. Denies other questions or concerns at this time.
[2024-11-26 19:56] VITALS: BP 120/58; PULSE 65; RESP 16; TEMP 36.4; O2SAT 100
[2024-11-26] MEDS: Prazosin HCL 1 MG CAPSULE 4 MG PO (20:50)
[2024-11-26] MEDS: traZODone HCL 50 MG TABLET PO (20:50)
[2024-11-27] MEDS: traZODone HCL 50 MG TABLET PO ×2 (02:56→20:45)
[2024-11-27 07:10] VITALS: BP 115/65; PULSE 58; RESP 14; TEMP 36.6; O2SAT 95
[2024-11-27 08:28] LABS: Estimated Average Glucose 94 mg/dL; Hemoglobin A1C 111.2029 umol/L; Hemoglobin A1c % 4.9 % (<6.0); Total Hemoglobin (HGBA1C) 3726.8399 umol/L
[2024-11-27 08:34] LABS: Cholesterol 216 mg/dL (<200); HDL Cholesterol 66 mg/dL (>40); LDL Cholesterol Calculated 132 mg/dL (<100); Triglycerides 93 mg/dL (<150)
[2024-11-27 08:36] LABS: Alanine Aminotransferase 19 U/L (0-31); Albumin Level 4.1 g/dL (3.5-5.0); Alkaline Phosphatase 90 U/L (39-117); Anion Gap 11 (12-20); Aspartate Amino Transferase 22 U/L (5-31); Bilirubin Total 1.1 mg/dL (0.0-1.0); Blood Urea Nitrogen 11 mg/dL (9-16); Calcium 9.5 mg/dL (8.4-10.2); Carbon Dioxide 27 mmol/L (22-29); Chloride 109 mmol/L (96-108); Creatinine Clr Calc Pharmacy 75.7; Estimated Glomerular Filt Rate > 60; Glucose Random 96 mg/dL (60-115); Potassium 4.2 mmol/L (3.3-5.1); Sodium 143 mmol/L (135-145); Total Protein 6.6 g/dL (6.5-8.0)
[2024-11-27] MEDS: busPIRone HCl 5 MG TABLET 15 MG PO ×3 (08:55→20:44)
[2024-11-27] MEDS: buPROPion HCl XL 150 MG TAB.ER.24H PO (08:55)
[2024-11-27] MEDS: Escitalopram Oxalate 20 MG TABLET PO (08:55)
[2024-11-27] MEDS: Valsartan 320 MG TABLET PO (08:55)
[2024-11-27] MEDS: Thiamine HCL 100 MG TABLET PO (08:55)
[2024-11-27] MEDS: hydrOXYzine HCL 25 MG TABLET PO ×3 (08:57→20:51)
[2024-11-27 12:30] VITALS: BP 104/59; PULSE 58; O2SAT 100
--- NOTE | 2024-11-27 17:42 | P.PNPSI_ITS ---
Subjective Subjective Date of Service: 11/27/24 Reason For Visit: Crisis Interim History: wants it to be on the record that she DID NOT overdose on klonopin. it was buspar. she recalls the pills were white, not blue. also she denies any gastric lavage or charcoal or vomiting after the OD, and she was not sedated, per her report. she attaches this epiphany to an expectation that her klonopin be restarted. MD declines to restart klonopin and informs pt she will remain on CIWA with ativan PRN for now. no other complaints or requests. per staff, 3- day up 11/30. attending groups. hydroxyzine helpful. remains on CIWA. cooperative. eating, sleeping. Mental Status Exam Mental Status Exam Narrative: Pt is alert and oriented; behavior is cooperative, calm, guarded; dressed in casual attire; mood is not assessed; eye contact appropriate; Speech is normal rate, volume and not pressured; thought process is organized; Thought content is on tx; denies SI/HI/VH/AH. Diagnostics Vital Signs (24Hr): Vital Signs - 24 hr 11/26/24 19:56 11/27/24 07:10 11/27/24 12:30 Temperature 97.6 F 97.8 F Pulse Rate 65 58 58 Respiratory Rate 16 14 Blood Pressure 120/58 L 115/65 104/59 L Pulse Oximetry 100 95 100 Oxygen Delivery Method Room Air Room Air Room Air BMI result Body Mass Index 25.4 Labs 11/24/24 14:34 11/27/24 07:50 Labs: Laboratory Results - last 48 hr 11/27/24 07:50 Sodium 143 Potassium 4.2 Chloride 109 H Carbon Dioxide 27 Anion Gap 11 L BUN 11 Creatinine 0.81 Estim Creat Clear Calc 75.7 Estimated GFR > 60 Random Glucose 96 Estimat Average Glucose 94 Hemoglobin A1c % 4.9 Calcium 9.5 D Total Bilirubin 1.1 H AST 22 ALT 19 Alkaline Phosphatase 90 Total Protein 6.6 Albumin 4.1 Triglycerides 93 Cholesterol 216 H LDL Cholesterol, Calc 132 H HDL Cholesterol 66 Medications Medications Current Medications Acetaminophen (Acetaminophen 325 Mg Tablet) 650 mg PO Q6H PRN PRN Reason: Headache/Pain, Scale 1-10 Al Hydroxide/Mg Hydroxide (Magnesium Hydrox/Alum Hydrox 30 Ml Oral.Susp) 30 ml PO Q6H PRN PRN Reason: Heartburn/Nausea Bupropion HCl (Bupropion Hcl Xl 150 Mg Tab.Er.24h) 150 mg PO DAILY [facility] Last Admin: 11/27/24 08:55 Dose: 150 mg Buspirone HCl (Buspirone Hcl 5 Mg Tablet) 15 mg PO TID [facility] Last Admin: 11/27/24 14:27 Dose: 15 mg Escitalopram Oxalate (Escitalopram Oxalate 20 Mg Tablet) 20 mg PO DAILY [facility] Last Admin: 11/27/24 08:55 Dose: 20 mg Hydroxyzine HCl (Hydroxyzine Hcl 25 Mg Tablet) 25 mg PO Q6H PRN PRN Reason: mild anxiety Last Admin: 11/27/24 14:40 Dose: 25 mg Lorazepam (Lorazepam 1 Mg Tablet) 1 mg PO Q2H PRN PRN Reason: CIWA 8-11 Lorazepam (Lorazepam 1 Mg Tablet) 2 mg PO Q2H PRN PRN Reason: CIWA 12-15 Lorazepam (Lorazepam 1 Mg Tablet) 3 mg PO Q2H PRN PRN Reason: CIWA > 15, and call Magnesium Hydroxide (Milk Of Magnesia 30 Ml Oral.Susp) 30 ml PO DAILY PRN PRN Reason: Constipation Nicotine (Nicotine 21 Mg Patch.Td24) 21 mg TRANSDERMA DAILY [facility] Last Admin: 11/27/24 10:14 Dose: Not Given Nicotine Polacrilex (Nicotine Polacrilex 2 Mg Gum) 4 mg BUCCAL Q2H PRN PRN Reason: Nicotine Cravings Prazosin HCl (Prazosin Hcl 1 Mg Capsule) 4 mg PO BEDTIME [facility]; Protocol Last Admin: 11/26/24 20:50 Dose: 4 mg Thiamine HCl (Thiamine Hcl 100 Mg Tablet) 100 mg PO DAILY [facility] Last Admin: 11/27/24 08:55 Dose: 100 mg Trazodone HCl (Trazodone Hcl 50 Mg Tablet) 50 mg PO BEDTIME MRX1 PRN PRN Reason: Insomnia Last Admin: 11/27/24 02:56 Dose: 50 mg Valsartan (Valsartan 320 Mg Tablet) 320 mg PO DAILY [facility]; Protocol Last Admin: 11/27/24 08:55 Dose: 320 mg Allergies Allergies Allergy/AdvReac Type Severity Reaction Status Date / Time meperidine [From DEMEROL] Allergy Unknown UNKNOWN Verified 11/24/24 14:03 Assessment & Plan Assessment & Plan (1) MDD (major depressive disorder), recurrent episode: Qualifiers: Major depression episode severity: unspecified Qualified Code(s): F33.9 - Major depressive disorder, recurrent, unspecified Status: Acute Code(s): F33.9 - Major depressive disorder, recurrent, unspecified (2) Post traumatic stress disorder (PTSD): Status: Acute Code(s): F43.10 - Post-traumatic stress disorder, unspecified (3) Alcohol use disorder: Status: Acute Code(s): F10.90 - Alcohol use, unspecified, uncomplicated Plan Patient is a 59-year-old female with history of MDD, PTSD, alcohol use disorder who was brought into ER due to intentionally overdosing on 20 tablets of Klonopin secondary to increased life stressors. 11/25: CIWA protocol. Continue home medications aside from klonopin and ambien. Encourage groups. Discharge planning. 11/26: not scoring on CIWA, but due to klonopin's long half life, it may take several days for withdrawal to begin in earnest. slept well without ambien. 3- day up next friday. continue current mgmt. 11/27: continues not scoring on CIWA. states she actually overdosed on buspar, not klonopin, and expects klonopin to be restarted, which declines to do. continue current mgmt. Reason for continued inpatient stay Substantial Risk for: harm to self and inability to function Time Spent With Patient Time: Total time managing care of this patient today ____ minutes.
[2024-11-27 18:54] VITALS: BP 100/54; PULSE 71; RESP 16; TEMP 36.4; O2SAT 98
[2024-11-27 20:44] VITALS: BP 115/56
[2024-11-27] MEDS: Prazosin HCL 1 MG CAPSULE 4 MG PO (20:44)
[2024-11-28 07:45] VITALS: BP 104/58; PULSE 74; RESP 16; TEMP 36.9; O2SAT 98
[2024-11-28] MEDS: Valsartan 320 MG TABLET PO (09:03)
[2024-11-28] MEDS: Escitalopram Oxalate 20 MG TABLET PO (09:03)
[2024-11-28] MEDS: Thiamine HCL 100 MG TABLET PO (09:03)
[2024-11-28] MEDS: buPROPion HCl XL 150 MG TAB.ER.24H PO (09:04)
[2024-11-28] MEDS: busPIRone HCl 5 MG TABLET 15 MG PO ×3 (09:04→20:21)
[2024-11-28] MEDS: hydrOXYzine HCL 25 MG TABLET PO ×2 (13:07→20:22)
[2024-11-28 19:14] VITALS: BP 109/75; PULSE 64; RESP 15; TEMP 36.4; O2SAT 96
[2024-11-28 20:21] VITALS: BP 109/75
[2024-11-28] MEDS: Prazosin HCL 1 MG CAPSULE 4 MG PO (20:21)
[2024-11-28] MEDS: traZODone HCL 50 MG TABLET PO (20:22)
--- NOTE | 2024-11-28 21:15 | P.PNPSI_ITS ---
Subjective Subjective Date of Service: 11/28/24 Reason For Visit: Crisis Interim History: doing well. calm, cooperative, bright. asking for more for sleep. risks of ambien discussed. pt asks for increased dose of hydroxyzine at HS. per staff, 3-day up friday. not scoring on CIWA. eating and sleeping well. attending groups. Mental Status Exam Mental Status Exam Narrative: Pt is alert and oriented; behavior is cooperative, calm, guarded; dressed in casual attire; mood is not assessed; eye contact appropriate; Speech is normal rate, volume and not pressured; thought process is organized; Thought content is on tx; denies SI/HI/VH/AH. Diagnostics Vital Signs (24Hr): Vital Signs - 24 hr 11/28/24 07:45 11/28/24 19:14 11/28/24 20:21 Temperature 98.4 F 97.6 F Pulse Rate 74 64 Respiratory Rate 16 15 Blood Pressure 104/58 L 109/75 109/75 Pulse Oximetry 98 96 Oxygen Delivery Method Room Air Room Air BMI result Body Mass Index 25.4 Labs 11/24/24 14:34 11/27/24 07:50 Labs: Laboratory Results - last 48 hr 11/27/24 07:50 Sodium 143 Potassium 4.2 Chloride 109 H Carbon Dioxide 27 Anion Gap 11 L BUN 11 Creatinine 0.81 Estim Creat Clear Calc 75.7 Estimated GFR > 60 Random Glucose 96 Estimat Average Glucose 94 Hemoglobin A1c % 4.9 Calcium 9.5 D Total Bilirubin 1.1 H AST 22 ALT 19 Alkaline Phosphatase 90 Total Protein 6.6 Albumin 4.1 Triglycerides 93 Cholesterol 216 H LDL Cholesterol, Calc 132 H HDL Cholesterol 66 Medications Medications Current Medications Acetaminophen (Acetaminophen 325 Mg Tablet) 650 mg PO Q6H PRN PRN Reason: Headache/Pain, Scale 1-10 Al Hydroxide/Mg Hydroxide (Magnesium Hydrox/Alum Hydrox 30 Ml Oral.Susp) 30 ml PO Q6H PRN PRN Reason: Heartburn/Nausea Bupropion HCl (Bupropion Hcl Xl 150 Mg Tab.Er.24h) 150 mg PO DAILY [facility] Last Admin: 11/28/24 09:04 Dose: 150 mg Buspirone HCl (Buspirone Hcl 5 Mg Tablet) 15 mg PO TID [facility] Last Admin: 11/28/24 20:21 Dose: 15 mg Escitalopram Oxalate (Escitalopram Oxalate 20 Mg Tablet) 20 mg PO DAILY [facility] Last Admin: 11/28/24 09:03 Dose: 20 mg Hydroxyzine HCl (Hydroxyzine Hcl 25 Mg Tablet) 25 mg PO Q6H PRN PRN Reason: mild anxiety Last Admin: 11/28/24 13:07 Dose: 25 mg Hydroxyzine HCl (Hydroxyzine Hcl 25 Mg Tablet) 25 mg PO BEDTIME PRN PRN Reason: insomnia Last Admin: 11/28/24 20:22 Dose: 25 mg Lorazepam (Lorazepam 1 Mg Tablet) 1 mg PO Q2H PRN PRN Reason: CIWA 8-11 Lorazepam (Lorazepam 1 Mg Tablet) 2 mg PO Q2H PRN PRN Reason: CIWA 12-15 Lorazepam (Lorazepam 1 Mg Tablet) 3 mg PO Q2H PRN PRN Reason: CIWA > 15, and call Magnesium Hydroxide (Milk Of Magnesia 30 Ml Oral.Susp) 30 ml PO DAILY PRN PRN Reason: Constipation Nicotine (Nicotine 21 Mg Patch.Td24) 21 mg TRANSDERMA DAILY [facility] Last Admin: 11/28/24 09:06 Dose: Not Given Nicotine Polacrilex (Nicotine Polacrilex 2 Mg Gum) 4 mg BUCCAL Q2H PRN PRN Reason: Nicotine Cravings Prazosin HCl (Prazosin Hcl 1 Mg Capsule) 4 mg PO BEDTIME [facility]; Protocol Last Admin: 11/28/24 20:21 Dose: 4 mg Thiamine HCl (Thiamine Hcl 100 Mg Tablet) 100 mg PO DAILY [facility] Last Admin: 11/28/24 09:03 Dose: 100 mg Trazodone HCl (Trazodone Hcl 50 Mg Tablet) 50 mg PO BEDTIME MRX1 PRN PRN Reason: Insomnia Last Admin: 11/28/24 20:22 Dose: 50 mg Valsartan (Valsartan 320 Mg Tablet) 320 mg PO DAILY [facility]; Protocol Last Admin: 11/28/24 09:03 Dose: 320 mg Allergies Allergies Allergy/AdvReac Type Severity Reaction Status Date / Time meperidine [From DEMEROL] Allergy Unknown UNKNOWN Verified 11/24/24 14:03 Assessment & Plan Assessment & Plan (1) MDD (major depressive disorder), recurrent episode: Qualifiers: Major depression episode severity: unspecified Qualified Code(s): F33.9 - Major depressive disorder, recurrent, unspecified Status: Acute Code(s): F33.9 - Major depressive disorder, recurrent, unspecified (2) Post traumatic stress disorder (PTSD): Status: Acute Code(s): F43.10 - Post-traumatic stress disorder, unspecified (3) Alcohol use disorder: Status: Acute Code(s): F10.90 - Alcohol use, unspecified, uncomplicated Plan Patient is a 59-year-old female with history of MDD, PTSD, alcohol use disorder who was brought into ER due to intentionally overdosing on 20 tablets of Klonopin secondary to increased life stressors. 11/25: CIWA protocol. Continue home medications aside from klonopin and ambien. Encourage groups. Discharge planning. 11/26: not scoring on CIWA, but due to klonopin's long half life, it may take several days for withdrawal to begin in earnest. slept well without ambien. 3- day up next friday. continue current mgmt. 11/27: continues not scoring on CIWA. states she actually overdosed on buspar, not klonopin, and expects klonopin to be restarted, which MD declines to do. continue current mgmt. 11/28: not scoring on CIWA. asking for sleep aid; MD educates on negatives of ambien. pt asks for more hydroxyzine instead, which is prescribed. pt encouraged to rely on prazosin and trazodone, but she declines dose increases of either. 3-day up friday. Reason for continued inpatient stay Substantial Risk for: harm to self Time Spent With Patient Time: Total time managing care of this patient today __25__ minutes.
[2024-11-29] MEDS: hydrOXYzine HCL 25 MG TABLET PO (00:15)
[2024-11-29] MEDS: traZODone HCL 50 MG TABLET PO (00:16)
[2024-11-29 07:45] VITALS: BP 117/63; PULSE 67; RESP 16; TEMP 37.7; O2SAT 96
[2024-11-29 08:24] VITALS: BP 117/63
[2024-11-29] MEDS: Valsartan 320 MG TABLET PO (08:24)
[2024-11-29] MEDS: busPIRone HCl 5 MG TABLET 15 MG PO (08:24)
[2024-11-29] MEDS: Escitalopram Oxalate 20 MG TABLET PO (08:25)
[2024-11-29] MEDS: buPROPion HCl XL 150 MG TAB.ER.24H PO (08:25)
[2024-11-29] MEDS: Thiamine HCL 100 MG TABLET PO (08:25)
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
== END 2024-11-29 10:47 | disposition home or self-care (01) | DRG 885 ==
LOC: HO.ED 11-25 11:19 → HO.PADLT16 11-25 13:01
PROVIDERS: Emergency Medicine; Admitting Provider Registered Nurse; Emergency Provider Emergency Medicine; PCP Internal Medicine; Responsible Provider Registered Nurse; Visit Provider Psychiatry & Neurology Psychiatry
DX: F33.9 Major depressive disorder, recurrent, unspecified (principal); F17.210 Nicotine dependence, cigarettes, uncomplicated; T43.592A Poisoning by other antipsychotics and neuroleptics, intentional self-harm, initial encounter; F43.10 Post-traumatic stress disorder, unspecified; Y90.6 Blood alcohol level of 120-199 mg/100 ml; F10.10 Alcohol abuse, uncomplicated; Z71.6 Tobacco abuse counseling; Z79.899 Other long term (current) drug therapy
CPT/HCPCS: 36415; 80053; 80061; 80143; 80179; 80307; 81001; 83036; 85025; 93005; 99285; S9485

== ENCOUNTER → 2024-11-24 14:06 | Outpatient (BNV) | payer MEDICARE, SELFPAY | PROVIDERS: Admitting Provider Registered Nurse; Emergency Provider Emergency Medicine; PCP Internal Medicine; Responsible Provider Registered Nurse; Visit Provider Internal Medicine Cardiovascular Disease | DX: R94.31 Abnormal electrocardiogram [ECG] [EKG] (principal); T50.901A Poisoning by unspecified drugs, medicaments and biological substances, accidental (unintentional), initial encounter | CPT/HCPCS: 93010 ==

== ENCOUNTER → 2024-11-25 12:53 | Outpatient (BNV) | payer OTHER, SELFPAY | PROVIDERS: Admitting Provider Registered Nurse; Emergency Provider Emergency Medicine; PCP Internal Medicine; Responsible Provider Registered Nurse; Visit Provider Psychiatry & Neurology Psychiatry | DX: F33.2 Major depressive disorder, recurrent severe without psychotic features (principal); F43.11 Post-traumatic stress disorder, acute; F10.90 Alcohol use, unspecified, uncomplicated | CPT/HCPCS: 90792; 99232 ==

== ENCOUNTER 2025-02-21 20:03 | Inpatient (IN) | payer OTHER, SELFPAY ==
[2025-02-21 21:19] LABS: Imm Gran Abs Auto 0.01 X10*3/uL (0.00-0.03); Imm Gran Pct Auto 0.1 % (0.0-0.4); MANUAL DIFF FLAG SCAN; NRBC Abs Auto 0.000 X10*3/uL (0.0-0.012); NRBC Pct Auto 0.0 /100WBC (0.0-0.2); PLT CLUMP 1; SCAN SMEAR FLAG 1
[2025-02-21 21:21] LABS: Hematocrit 39.6 % (37.0-47.0); Hemoglobin 14.3 g/dl (12.0-16.0); Lymphocytes Absolute Auto 3.1 X10*3/uL (1.2-4.9); Mean Corpuscular HGB Conc 36.1 g/dl (31.0-35.0); Mean Corpuscular Hemoglobin 32.5 pg (27.0-33.0); Mean Corpuscular Volume 90.0 fL (80.0-98.0); Red Blood Count 4.40 X10*6/uL (4.20-5.50)
[2025-02-21 21:25] LABS: Cannabinoid Screen Urine POSITIVE (Not Detect)
[2025-02-21 21:28] LABS: Alanine Aminotransferase 13 U/L (0-31); Albumin Level 4.1 g/dL (3.5-5.0); Alkaline Phosphatase 82 U/L (39-117); Anion Gap 14 (12-20); Aspartate Amino Transferase 22 U/L (5-31); Blood Urea Nitrogen 4 mg/dL (9-16); Calcium 8.8 mg/dL (8.4-10.2); Carbon Dioxide 22 mmol/L (22-29); Chloride 106 mmol/L (96-108); Estimated Glomerular Filt Rate > 60; Magnesium 2.2 mg/dL (1.6-2.6); Potassium 3.4 mmol/L (3.3-5.1); Sodium 139 mmol/L (135-145); Total Protein 6.4 g/dL (6.5-8.0)
[2025-02-21 21:31] VITALS: BP 103/62; BP 120/60; PULSE 61; PULSE 66; RESP 16; TEMP 36.6; O2SAT 100; O2SAT 98; BMI 26.6
[2025-02-21 21:33] LABS: White Blood Count 7.2 X10*3/uL (4.8-10.8)
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
[2025-02-21 22:20] LABS: Platelet Count 152 X10*3/uL (160-400)
--- NOTE | 2025-02-22 | ECG_ITS ---
Test Reason : RULE OUT PROLONGED QTC Blood Pressure : */* mmHG Vent. Rate : 63 BPM Atrial Rate : 63 BPM P-R Int : 170 ms QRS Dur : 92 ms QT Int : 488 ms P-R-T Axes : 53 28 17 degrees QTcB Int : 499 ms Normal sinus rhythm Nonspecific T wave abnormality Prolonged QT Abnormal ECG When compared with ECG of 24-Nov-2024 14:25, Nonspecific T wave abnormality now evident in Inferior leads Nonspecific T wave abnormality now evident in Anterolateral leads Referred By: Hien Lenz Electronically Signed By: Casey Sanchez
--- NOTE | 2025-02-22 02:36 | PC.NURSE ---
Pt reporting having difficulty sleeping. Takes ambien and hydroxyzine at home. notified and ordered meds.Administered meds as ordered. T/w asked patient safety questions. Pt denies SI/HI. reports that she had a couple nips of alcohol, reports she doesn't really remember what happened earlier before she came in but she wants to go home. T/w explained that care team usually waits for pts to be sober and they will come speak with her. The decision will be made by care team and the doctor. Pt going to get some sleep.
[2025-02-22 02:38] VITALS: BP 105/67; PULSE 58; RESP 16; TEMP 36.6; O2SAT 96
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
--- NOTE | 2025-02-22 07:11 | PC.NURSE ---
Assumed care of patient at 0645, patient appears to be in no apparent distress this am, speaking on pod phone, offering no complaints to this Rn. Continue plan of care for CARE team kina
[2025-02-22 11:39] LABS: Appearance Urine Clear; Glucose Urine UA Negative (Negative); PH 6.5 (5.0-9.0); Specific Gravity - Urine <= 1.005 (1.005-1.025)
[2025-02-22] MEDS: buPROPion HCl XL 150 MG TAB.ER.24H PO (12:24)
[2025-02-22 12:44] VITALS: BP 124/91
--- NOTE | 2025-02-22 14:05 | PHA.MEDREC ---
Addendum entered by Johnathon Stringer PharmD 02/22/25 14:08: reviewed Original Note: Pharmacy Consult ? Medication Reconciliation Pharmacy has reviewed the medication reconciliation done by nursing. Claims match med list.
--- NOTE | 2025-02-22 15:36 | PC.NURSE ---
Swati is a 59 year old caucasion female who arrived from the pod at 1506 via wheelchair. Skin check and currency exchange specialist done with this creative services writer and Wale PATINO. No skin issues noted. Great toes on both feet, with long curled toe nails. Medical issues include: HTN. Substance use includes etoh use. Denies any withdrawl symptoms at this time. VSS, bp 136/72 T 97.8 resp 16 pulse 78. Admission will be completed by Le PATINO. Denies current SI. Signed a cv. To be seen by provider to accept.
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
[2025-02-22 20:00] VITALS: BP 125/57; PULSE 72; TEMP 36.6; O2SAT 98
[2025-02-22 20:12] VITALS: BP 125/57
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
[2025-02-23 08:23] VITALS: BP 113/63
[2025-02-23] MEDS: buPROPion HCl XL 150 MG TAB.ER.24H PO ×2 (08:25→11:01)
[2025-02-23 08:28] LABS: Hemoglobin A1C 124.6243 umol/L; Total Hemoglobin (HGBA1C) 4029.5666 umol/L
[2025-02-23 08:53] LABS: Alanine Aminotransferase 19 U/L (0-31); Albumin Level 4.4 g/dL (3.5-5.0); Alkaline Phosphatase 85 U/L (39-117); Anion Gap 14 (12-20); Aspartate Amino Transferase 22 U/L (5-31); Blood Urea Nitrogen 9 mg/dL (9-16); Calcium 9.6 mg/dL (8.4-10.2); Carbon Dioxide 27 mmol/L (22-29); Chloride 105 mmol/L (96-108); Cholesterol 229 mg/dL (<200); Creatinine Clr Calc Pharmacy 73.7; Estimated Glomerular Filt Rate > 60; HDL Cholesterol 66 mg/dL (>40); Potassium 4.0 mmol/L (3.3-5.1); Sodium 142 mmol/L (135-145); Total Protein 6.8 g/dL (6.5-8.0); Triglycerides 134 mg/dL (<150)
--- NOTE | 2025-02-23 18:37 | P.PNPSI_ITS ---
Subjective Subjective Date of Service: 02/23/25 Reason For Visit: decompensation Subjective Notes: 3 Day Healthcare Proxy: No Guardianship: No Medical Problems Affecting Mental Status: No Interim History: Medical record and nursing notes reviewed; case discussed during rounds with team, and met with patient for supportive therapy/psychoeducation, as well as medication management. Per chart review, patient slept for 8 hours and was medication compliant. Denies side effects from medication. Denies safety concerns. Reports that she has a very good night sleep last night. Appear to be visible social and attending groups this morning. Review lab results with patient. Educated on healthy diet and healthy lifestyle. She expressed PHP interest but she said she can also refer herself after discharge. hydroponics worker was aware. She does not want to retracted 3 day. However agreed to have Wellbutrin increased up to 300 mg from 150 for depression/ anxiety. 1st dose given this morning. Deny suicidal thoughts, voices, self-harm thoughts, or homicidal thoughts Medication Compliance: Yes Side effects from medications: No Attending Groups: Yes Review of Systems Acute medical concerns: No Medical Review of Systems: unchanged Review of Systems Review of Systems Constitutional: Denies fatigue and Denies fever(s) Cardiovascular: Denies chest pain and Denies dyspnea Respiratory: Denies dyspnea Gastrointestinal: Denies abdominal pain Psychiatric: denies suicidal ideation Endocrine: Denies fatigue Yes all other systems are reviewed and are negative Mental Status Exam Mental Status Exam Narrative: Patient is alert and oriented x4; behavior is cooperative, friendly with mild to moderate anxiety and depression; patient is not in distress; dressed in own home clothing unkempt hair but adequate hygiene;. mood is described as depressed and anxious and affect congruent; eye contact appropriate; Speech is normal rate, volume and prosody and not pressured; no psychomotor agitation/retardation present; thought process is organized and goal directed but minimize of alcohol use; Thought content is WNL, pertinent to relevant topics and without any delusional content, paranoid ideation or grandiosity; denies any SI/SIB/HI. Denies AH and there is no evidence of perceptual disturbance. Patient's insight and judgment impairment Diagnostics Vital Signs (24Hr): Vital Signs - 24 hr 02/22/25 20:00 02/22/25 20:12 02/23/25 08:23 Temperature 97.8 F Pulse Rate 72 Blood Pressure 125/57 L 125/57 L 113/63 Pulse Oximetry 98 Oxygen Delivery Method Room Air BMI result Body Mass Index 26.6 Labs 02/21/25 21:08 02/23/25 08:06 Labs: Laboratory Results - last 48 hr 02/21/25 02/23/25 21:08 08:06 WBC 7.2 RBC 4.40 Hgb 14.3 Hct 39.6 MCV 90.0 MCH 32.5 MCHC 36.1 H RDW 12.5 Plt Count 152 L MPV 9.3 L Immature Gran % (Auto) 0.1 Neut % (Auto) 51.4 Lymph % (Auto) 42.8 H [place] % (Auto) 4.3 Eos % (Auto) 0.8 Baso % (Auto) 0.6 Lymph # (Auto) 3.1 [place] # (Auto) 0.3 Eos # (Auto) 0.1 Baso # (Auto) 0.0 Abs Immat Gran (auto) 0.01 Absolute Neuts (auto) 3.7 Absolute Nucleated RBC 0.000 Nucleated RBC % (auto) 0.0 Smear Tech's Comments VERIFIED Sodium 139 142 Potassium 3.4 4.0 Chloride 106 105 Carbon Dioxide 22 27 Anion Gap 14 14 BUN 4 L 9 Creatinine 0.65 0.85 Estim Creat Clear Calc TNP 73.7 Estimated GFR > 60 > 60 Random Glucose 100 108 Estimat Average Glucose 97 Hemoglobin A1c % 5.0 Calcium 8.8 D 9.6 D Magnesium 2.2 Total Bilirubin 1.2 H 2.5 H Direct Bilirubin 0.3 AST 22 22 ALT 13 19 Alkaline Phosphatase 82 85 Total Protein 6.4 L 6.8 Albumin 4.1 4.4 Triglycerides 134 Cholesterol 229 H LDL Cholesterol, Calc 137 H HDL Cholesterol 66 TSH 1.87 Urine Color Yellow Urine Appearance Clear Urine pH 6.5 Ur Specific [place] <= 1.005 Urine Protein Negative Urine Glucose (UA) Negative Urine Ketones Negative Urine Blood Negative Urine Nitrite Negative Ur Leukocyte Esterase Negative Urine Opiates Screen Not Detected Ur Buprenorphine Scrn Not Detected Ur Oxycodone Screen Not Detected Urine Methadone Screen Not Detected Urine Fentanyl Screen Not Detected Ur Barbiturates Screen Not Detected Ur Phencyclidine Scrn Not Detected Ur Amphetamines Screen Not Detected U Benzodiazepines Scrn Not Detected Urine Cocaine Screen Not Detected U Marijuana (THC) Screen POSITIVE H Ethyl Alcohol 163 Medications Medications Current Medications Acetaminophen (Acetaminophen 325 Mg Tablet) 650 mg PO Q6H PRN PRN Reason: Headache/Pain, Scale 1-10 Al Hydroxide/Mg Hydroxide (Magnesium Hydrox/Alum Hydrox 30 Ml Oral.Susp) 30 ml PO Q6H PRN PRN Reason: Heartburn/Nausea Bupropion HCl (Bupropion Hcl Xl 300 Mg Tab.Er.24h) 300 mg PO DAILY RUSLAN Buspirone HCl (Buspirone Hcl 5 Mg Tablet) 15 mg PO TID RUSLAN Last Admin: 02/23/25 14:34 Dose: 15 mg Clonazepam (Clonazepam 1 Mg Tablet) 1 mg PO TID PRN PRN Reason: Anxiety Last Admin: 02/23/25 14:34 Dose: 1 mg Escitalopram Oxalate (Escitalopram Oxalate 20 Mg Tablet) 20 mg PO DAILY RUSLAN Last Admin: 02/23/25 08:24 Dose: 20 mg Hydroxyzine HCl (Hydroxyzine Hcl 25 Mg Tablet) 25 mg PO Q6H PRN PRN Reason: mild anxiety Last Admin: 02/22/25 20:13 Dose: 25 mg Magnesium Hydroxide (Milk Of Magnesia 30 Ml Oral.Susp) 30 ml PO DAILY PRN PRN Reason: Constipation Nicotine (Nicotine 21 Mg Patch.Td24) 21 mg TRANSDERMA DAILY PRN PRN Reason: smoking cessation Nicotine Polacrilex (Nicotine Polacrilex 2 Mg Gum) 4 mg BUCCAL Q2H PRN PRN Reason: Nicotine Cravings Olanzapine (Olanzapine 5 Mg Tablet) 5 mg PO TID PRN PRN Reason: agitation Prazosin HCl (Prazosin Hcl 1 Mg Capsule) 4 mg PO BEDTIME RUSLAN; Protocol Last Admin: 02/22/25 20:12 Dose: 4 mg Trazodone HCl (Trazodone Hcl 50 Mg Tablet) 50 mg PO BEDTIME MRX1 PRN PRN Reason: Insomnia Valsartan (Valsartan 320 Mg Tablet) 320 mg PO DAILY RUSLAN; Protocol Last Admin: 02/23/25 08:23 Dose: 320 mg Vitamin D (Cholecalciferol (Vitamin D3) 25 Mcg Tablet) 50 mcg PO DAILY RUSLAN Last Admin: 02/23/25 08:24 Dose: 50 mcg Zolpidem Tartrate (Zolpidem Tartrate 5 Mg Tablet) 10 mg PO BEDTIME PRN PRN Reason: Insomnia Last Admin: 02/22/25 20:12 Dose: 10 mg Allergies Allergies Allergy/AdvReac Type Severity Reaction Status Date / Time meperidine (From DEMEROL) Allergy Unknown UNKNOWN Verified 02/21/25 21:39 Assessment & Plan Assessment & Plan (1) Post traumatic stress disorder (PTSD): Status: Acute Code(s): F43.10 - Post-traumatic stress disorder, unspecified (2) MDD (major depressive disorder), recurrent episode: Qualifiers: Major depression episode severity: unspecified Qualified Code(s): F33.9 - Major depressive disorder, recurrent, unspecified Status: Acute Code(s): F33.9 - Major depressive disorder, recurrent, unspecified (3) Acute anxiety: Status: Acute Code(s): F41.9 - Anxiety disorder, unspecified (4) Alcohol use disorder: Status: Acute Code(s): F10.90 - Alcohol use, unspecified, uncomplicated Plan HPI: Patient is a 59 -year-old, , , Estonian speaking female with hx of MDD, anxiety PTSD, insomnia, and alcohol use disorders seen in the [facility] after she presented via ambulance from home after she told her son via phone that she was going to kill herself via overdose on her medications. She reported to EMS she had ? no reason to live anymore?. Patient appeared to be possibly under the influence of alcohol at the time of transport.. Patient reports she has been depressed due to having a court date coming up on March for a OUI. She reports she is unable to recall what occurred last evening prompting police to come and do a wellness check on her. Reports that she frustrated 1 attention, and S thing does not get to my way I got frustrated and said something I should not. Minimize her alcohol use, minimize of her suicidal statements. Formulation/clinical reasoning: Increased alcohol use, minimize of alcohol use but aware of affect her mood and her function, reports increase in depression and anxiety. Reports has been arguing with her sister. Carrying mental health diagnoses of PTSD, MDD, anxiety, and depression. Feel like medication is not working the same like it used to. Poor insight of reason she got a wellness checks, minimize of her suicidal statements. She can be impulsive. Given above information, patient would not be safe in less restrictive environment. We will adjust her medication to target above symptoms, and monitor for safety. Refer patient to outpatient services for aftercare. Hospital course: 02/22/25: Continue with home medication. Patient does not want have it changed. She would think about it and let the provider know. Wellbutrin XL 150 daily in the morning for depression anxiety. She will be benefit to get dose increased. BuSpar 15 mg t.i.d. for anxiety reports been very helpful Clonazepam 1 mg p.o. t.i.d. p.r.n. for severe anxiety Lexapro 20 mg daily for depression anxiety Prazosin 4 mg at bedtime for PTSD. Valstatan 320 mg daily for hypertension Ambien 10 mg at bedtime for insomnia. Other PRNs per protocol 02/23/25: Sleep and appetite are good. Attended groups, visible and social with peers and staff. Being appropriate. Continued to express depression and anxiety. Agreed to have Wellbutrin XL increased from 150 mg to 300 mg daily in the morning which she started 1st dose today. She good like to have Lexapro decreased. However she signed a 3 day notice, we will not have enough time to manage her medication with many changes. Leave it to outpatient provider to manage her medication after discharge. Interested in PHP at [facility]. hydroponics worker is aware. No safety concerns. Denies voices, hallucination. Plan Patient on 15 minute checks for safety. Admitted to . CV. Signed 3 day notice on a February 22. February 25. Possibility to be discharged back home. She had outpatient psychiatrist and therapist, support family, has a dog at home. Work with treatment team to do collateral and aftercare referral. She has outpatient psychiatrist therapist and PCP. Patient would love to be step-down to PHP at [facility]. She has good experience last time was there. Patient is medically cleared. She does not need to be on CIWA. Even though BAL was 163. Positive for marijuana. UA was unremarkable. Patient educated on: diagnosis, medication risk/benefits, substance abuse and therapeutic strategies Informed Consent: understands Reason for continued inpatient stay Substantial Risk for: med/psych decompensation Time Spent With Patient Time: Total time managing care of this patient today ____ minutes.
[2025-02-23 19:41] VITALS: BP 127/67; PULSE 66; TEMP 36.4; O2SAT 98
[2025-02-23 20:20] VITALS: BP 127/64
[2025-02-24 07:00] VITALS: BMI 25.0
[2025-02-24 08:00] VITALS: BP 102/62; PULSE 72; RESP 16; TEMP 36.4; O2SAT 98
--- NOTE | 2025-02-24 09:13 | P.PNPSI_ITS ---
Subjective Subjective Date of Service: 02/24/25 Reason For Visit: decompensation Subjective Notes: Conditional Voluntary and 3 Day Interim History: Patient notes that she feels ?good. She is looking forward to go home tomorrow. She has been taking her medications as prescribed without adverse reactions and attending groups. She no longer intends to drink alcohol. She denies history of drug use. She currently denies anxiety, depression, SI/HI/AH/VH. Medication Compliance: Yes Side effects from medications: No Attending Groups: Yes Review of Systems Acute medical concerns: No Mental Status Exam Mental Status Exam Narrative: Appearance: Casually dressed, adequate hygiene Behavior: Calm and cooperative throughout the interview. Eye contact is appropriate, and there are no signs of psychomotor agitation or retardation Speech: Normal volume and prosody Thought process: logical and goal-directed Thought content: Future oriented no self-harming thoughts Mood: Good Affect: Full, mood-congruent SI:denies HI:denies VH/AH:none Delusions: None Insight/judgment: Fair insight and judgment Memory/cog: Alert, oriented x 4. grossly intact to conversational testing Diagnostics Vital Signs (24Hr): Vital Signs - 24 hr 02/23/25 19:41 02/23/25 20:20 02/24/25 08:00 Temperature 97.6 F 97.6 F Pulse Rate 66 72 Respiratory Rate 16 Blood Pressure 127/67 127/64 102/62 Pulse Oximetry 98 98 Oxygen Delivery Method Room Air Room Air BMI result Body Mass Index 26.6 Labs 02/21/25 21:08 02/23/25 08:06 Labs: Laboratory Results - last 48 hr 02/21/25 02/23/25 21:08 08:06 Sodium 142 Potassium 4.0 Chloride 105 Carbon Dioxide 27 Anion Gap 14 BUN 9 Creatinine 0.85 Estim Creat Clear Calc 73.7 Estimated GFR > 60 Random Glucose 108 Estimat Average Glucose 97 Hemoglobin A1c % 5.0 Calcium 9.6 D Total Bilirubin 2.5 H AST 22 ALT 19 Alkaline Phosphatase 85 Total Protein 6.8 Albumin 4.4 Triglycerides 134 Cholesterol 229 H LDL Cholesterol, Calc 137 H HDL Cholesterol 66 TSH 1.87 Urine Color Yellow Urine Appearance Clear Urine pH 6.5 Ur Specific [place] <= 1.005 Urine Protein Negative Urine Glucose (UA) Negative Urine Ketones Negative Urine Blood Negative Urine Nitrite Negative Ur Leukocyte Esterase Negative Medications Medications Current Medications Acetaminophen (Acetaminophen 325 Mg Tablet) 650 mg PO Q6H PRN PRN Reason: Headache/Pain, Scale 1-10 Al Hydroxide/Mg Hydroxide (Magnesium Hydrox/Alum Hydrox 30 Ml Oral.Susp) 30 ml PO Q6H PRN PRN Reason: Heartburn/Nausea Bupropion HCl (Bupropion Hcl Xl 300 Mg Tab.Er.24h) 300 mg PO DAILY RUSLAN Buspirone HCl (Buspirone Hcl 5 Mg Tablet) 15 mg PO TID RUSLAN Last Admin: 02/23/25 20:20 Dose: 15 mg Clonazepam (Clonazepam 1 Mg Tablet) 1 mg PO TID PRN PRN Reason: Anxiety Last Admin: 02/23/25 14:34 Dose: 1 mg Escitalopram Oxalate (Escitalopram Oxalate 20 Mg Tablet) 20 mg PO DAILY RUSLAN Last Admin: 02/23/25 08:24 Dose: 20 mg Hydroxyzine HCl (Hydroxyzine Hcl 25 Mg Tablet) 25 mg PO Q6H PRN PRN Reason: mild anxiety Last Admin: 02/23/25 20:19 Dose: 25 mg Magnesium Hydroxide (Milk Of Magnesia 30 Ml Oral.Susp) 30 ml PO DAILY PRN PRN Reason: Constipation Nicotine (Nicotine 21 Mg Patch.Td24) 21 mg TRANSDERMA DAILY PRN PRN Reason: smoking cessation Nicotine Polacrilex (Nicotine Polacrilex 2 Mg Gum) 4 mg BUCCAL Q2H PRN PRN Reason: Nicotine Cravings Olanzapine (Olanzapine 5 Mg Tablet) 5 mg PO TID PRN PRN Reason: agitation Prazosin HCl (Prazosin Hcl 1 Mg Capsule) 4 mg PO BEDTIME RUSLAN; Protocol Last Admin: 02/23/25 20:20 Dose: 4 mg Trazodone HCl (Trazodone Hcl 50 Mg Tablet) 50 mg PO BEDTIME MRX1 PRN PRN Reason: Insomnia Last Admin: 02/23/25 23:55 Dose: 50 mg Valsartan (Valsartan 320 Mg Tablet) 320 mg PO DAILY RUSLAN; Protocol Last Admin: 02/23/25 08:23 Dose: 320 mg Vitamin D (Cholecalciferol (Vitamin D3) 25 Mcg Tablet) 50 mcg PO DAILY RUSLAN Last Admin: 02/23/25 08:24 Dose: 50 mcg Zolpidem Tartrate (Zolpidem Tartrate 5 Mg Tablet) 10 mg PO BEDTIME PRN PRN Reason: Insomnia Last Admin: 02/23/25 20:19 Dose: 10 mg Allergies Allergies Allergy/AdvReac Type Severity Reaction Status Date / Time meperidine (From DEMEROL) Allergy Unknown UNKNOWN Verified 02/21/25 21:39 Assessment & Plan Assessment & Plan (1) Post traumatic stress disorder (PTSD): Status: Acute Code(s): F43.10 - Post-traumatic stress disorder, unspecified (2) MDD (major depressive disorder), recurrent episode: Qualifiers: Major depression episode severity: unspecified Qualified Code(s): F33.9 - Major depressive disorder, recurrent, unspecified Status: Acute Code(s): F33.9 - Major depressive disorder, recurrent, unspecified (3) Acute anxiety: Status: Acute Code(s): F41.9 - Anxiety disorder, unspecified (4) Alcohol use disorder: Status: Acute Code(s): F10.90 - Alcohol use, unspecified, uncomplicated Plan HPI: Patient is a 59 -year-old, , , French speaking female with hx of MDD, anxiety PTSD, insomnia, and alcohol use disorders seen in the [facility] ED after she presented via ambulance from home after she told her son via phone that she was going to kill herself via overdose on her medications. She reported to EMS she had ? no reason to live anymore?. Patient appeared to be possibly under the influence of alcohol at the time of transport.. Patient reports she has been depressed due to having a court date coming up on March for a OUI. She reports she is unable to recall what occurred last evening prompting police to come and do a wellness check on her. Reports that she frustrated 1 attention, and S thing does not get to my way I got frustrated and said something I should not. Minimize her alcohol use, minimize of her suicidal statements. Formulation/clinical reasoning: Increased alcohol use, minimize of alcohol use but aware of affect her mood and her function, reports increase in depression and anxiety. Reports has been arguing with her sister. Carrying mental health diagnoses of PTSD, MDD, anxiety, and depression. Feel like medication is not working the same like it used to. Poor insight of reason she got a wellness checks, minimize of her suicidal statements. She can be impulsive. Given above information, patient would not be safe in less restrictive environment. We will adjust her medication to target above symptoms, and monitor for safety. Refer patient to outpatient services for aftercare. Hospital course: 02/22/25: Continue with home medication. Patient does not want have it changed. She would think about it and let the provider know. Wellbutrin XL 150 daily in the morning for depression anxiety. She will be benefit to get dose increased. BuSpar 15 mg t.i.d. for anxiety reports been very helpful Clonazepam 1 mg p.o. t.i.d. p.r.n. for severe anxiety Lexapro 20 mg daily for depression anxiety Prazosin 4 mg at bedtime for PTSD. Valstatan 320 mg daily for hypertension Ambien 10 mg at bedtime for insomnia. Other PRNs per protocol 02/23/25: Sleep and appetite are good. Attended groups, visible and social with peers and staff. Being appropriate. Continued to express depression and anxiety. Agreed to have Wellbutrin XL increased from 150 mg to 300 mg daily in the morning which she started 1st dose today. She good like to have Lexapro decreased. However she signed a 3 day notice, we will not have enough time to manage her medication with many changes. Leave it to outpatient provider to manage her medication after discharge. Interested in PHP at [facility]. lead supply worker is aware. No safety concerns. Denies voices, hallucination. 02/24: Currently stable. Continue current treatment regimen. Plan Patient on 15 minute checks for safety. Admitted to . CV. Signed 3 day notice on a February 22. February 25. Possibility to be discharged back home. She had outpatient psychiatrist and therapist, support family, has a dog at home. Work with treatment team to do collateral and aftercare referral. She has outpatient psychiatrist therapist and PCP. Patient would love to be step-down to PHP at [facility]. She has good experience last time was there. Patient is medically cleared. She does not need to be on CIWA. Even though BAL was 163. Positive for marijuana. UA was unremarkable. Patient educated on: therapeutic strategies Reason for continued inpatient stay Substantial Risk for: rapid decompensation Time Spent With Patient Time: Total time managing care of this patient today ____ minutes.
[2025-02-24 09:21] VITALS: BP 102/62
[2025-02-24] MEDS: buPROPion HCl XL 300 MG TAB.ER.24H PO (09:22)
[2025-02-24 19:50] VITALS: BP 116/60; PULSE 76; TEMP 36.8; O2SAT 97
[2025-02-25 08:00] VITALS: BP 113/65; PULSE 66; RESP 18; TEMP 36.7; O2SAT 98
[2025-02-25] MEDS: buPROPion HCl XL 300 MG TAB.ER.24H PO (08:16)
--- NOTE | 2025-02-25 10:34 | PM.PSYDC ---
DS: Providers Provider Date of Service: 02/25/25 Date of admission: 02/22/25 13:06 Date of discharge: 02/25/25 Primary care physician: Vinita Mcgill MD Admitting clinician: Micheline Olmstead Discharging clinician: Fidel Evans DS: Diagnosis Discharge Diagnosis (1) Post traumatic stress disorder (PTSD): Status: Acute (2) MDD (major depressive disorder), recurrent episode: Status: Acute (3) Acute anxiety: Status: Acute (4) Alcohol use disorder: Status: Acute DS: Medications Discharge Medications Home Medications: Previous Rx's ?Medication ?Instructions ?Recorded bupropion HCl 300 mg 24 hr tablet, 300 mg PO DAILY #30 tabs 02/25/25 extended release buspirone 5 mg tablet 15 mg (3 x 5 mg) PO TID #30 tabs 02/25/25 cholecalciferol (vitamin D3) 25 50 mcg (2 x 25 mcg (1,000 unit)) 02/25/25 mcg (1,000 unit) tablet PO DAILY 30 days #60 tabs clonazepam 1 mg tablet 1 mg PO TID PRN Anxiety #0 tabs 02/25/25 escitalopram oxalate 20 mg tablet 20 mg PO DAILY #30 tabs 02/25/25 hydroxyzine pamoate 25 mg capsule 25 mg PO BEDTIME PRN Anxiety 30 02/25/25 days #30 caps prazosin 1 mg capsule 4 mg PO BEDTIME #30 caps 02/25/25 trazodone 50 mg tablet 50 mg PO BEDTIME MRX1 PRN Insomnia 02/25/25 #30 tabs valsartan 320 mg tablet (Diovan) 320 mg PO DAILY #30 tabs 02/25/25 zolpidem 5 mg tablet 10 mg (2 x 5 mg) PO BEDTIME PRN 02/25/25 Insomnia #0 tabs Mental Status Exam Mental Status Exam Narrative: Appearance: Casually dressed, adequate hygiene Behavior: Calm and cooperative throughout the interview. Eye contact is appropriate, and there are no signs of psychomotor agitation or retardation Speech: Normal volume and prosody Thought process: logical and goal-directed Thought content: Future oriented no self-harming thoughts Mood: Good Affect: Full, mood-congruent SI:denies HI:denies VH/AH:none Delusions: None Insight/judgment: Fair insight and judgment Memory/cog: Alert, oriented x 4. grossly intact to conversational testing Data Data Completed and Pending Completed studies during hospitalization [Text1]: 02/21/25 02/23/25 21:08 08:06 WBC 7.2 RBC 4.40 Hgb 14.3 Hct 39.6 MCV 90.0 MCH 32.5 MCHC 36.1 H RDW 12.5 Plt Count 152 L MPV 9.3 L Immature Gran % (Auto) 0.1 Neut % (Auto) 51.4 Lymph % (Auto) 42.8 H Steuben % (Auto) 4.3 Eos % (Auto) 0.8 Baso % (Auto) 0.6 Lymph # (Auto) 3.1 [place] # (Auto) 0.3 Eos # (Auto) 0.1 Baso # (Auto) 0.0 Abs Immat Gran (auto) 0.01 Absolute Neuts (auto) 3.7 Absolute Nucleated RBC 0.000 Nucleated RBC % (auto) 0.0 Smear Tech's Comments VERIFIED Sodium 139 142 Potassium 3.4 4.0 Chloride 106 105 Carbon Dioxide 22 27 Anion Gap 14 14 BUN 4 L 9 Creatinine 0.65 0.85 Estim Creat Clear Calc TNP 73.7 Estimated GFR > 60 > 60 Random Glucose 100 108 Estimat Average Glucose 97 Hemoglobin A1c % 5.0 Calcium 8.8 D 9.6 D Magnesium 2.2 Total Bilirubin 1.2 H 2.5 H Direct Bilirubin 0.3 AST 22 22 ALT 13 19 Alkaline Phosphatase 82 85 Total Protein 6.4 L 6.8 Albumin 4.1 4.4 Triglycerides 134 Cholesterol 229 H LDL Cholesterol, Calc 137 H HDL Cholesterol 66 TSH 1.87 Urine Color Yellow Urine Appearance Clear Urine pH 6.5 Ur Specific [employer] <= 1.005 Urine Protein Negative Urine Glucose (UA) Negative Urine Ketones Negative Urine Blood Negative Urine Nitrite Negative Ur Leukocyte Esterase Negative Urine Opiates Screen Not Detected Ur Buprenorphine Scrn Not Detected Ur Oxycodone Screen Not Detected Urine Methadone Screen Not Detected Urine Fentanyl Screen Not Detected Ur Barbiturates Screen Not Detected Ur Phencyclidine Scrn Not Detected Ur Amphetamines Screen Not Detected U Benzodiazepines Scrn Not Detected Urine Cocaine Screen Not Detected U Marijuana (THC) Screen POSITIVE H Ethyl Alcohol 163 DS: Summary Hospital Course Hospital Course: HPI: Patient is a 59 -year-old, , , Kiswahili speaking female with hx of MDD, anxiety PTSD, insomnia, and alcohol use disorders seen in the [facility] after she presented via ambulance from home after she told her son via phone that she was going to kill herself via overdose on her medications. She reported to EMS she had ? no reason to live anymore?. Patient appeared to be possibly under the influence of alcohol at the time of transport.. Patient reports she has been depressed due to having a court date coming up on March for a OUI. She reports she is unable to recall what occurred last evening prompting police to come and do a wellness check on her. Reports that she frustrated 1 attention, and S thing does not get to my way I got frustrated and said something I should not. Minimize her alcohol use, minimize of her suicidal statements. Formulation/clinical reasoning: Increased alcohol use, minimize of alcohol use but aware of affect her mood and her function, reports increase in depression and anxiety. Reports has been arguing with her sister. Carrying mental health diagnoses of PTSD, MDD, anxiety, and depression. Feel like medication is not working the same like it used to. Poor insight of reason she got a wellness checks, minimize of her suicidal statements. She can be impulsive. Given above information, patient would not be safe in less restrictive environment. We will adjust her medication to target above symptoms, and monitor for safety. Refer patient to outpatient services for aftercare. Hospital course: 02/22/25: Continue with home medication. Patient does not want have it changed. She would think about it and let the provider know. Wellbutrin XL 150 daily in the morning for depression anxiety. She will be benefit to get dose increased. BuSpar 15 mg t.i.d. for anxiety reports been very helpful Clonazepam 1 mg p.o. t.i.d. p.r.n. for severe anxiety Lexapro 20 mg daily for depression anxiety Prazosin 4 mg at bedtime for PTSD. Valstatan 320 mg daily for hypertension Ambien 10 mg at bedtime for insomnia. Other PRNs per protocol 02/23/25: Sleep and appetite are good. Attended groups, visible and social with peers and staff. Being appropriate. Continued to express depression and anxiety. Agreed to have Wellbutrin XL increased from 150 mg to 300 mg daily in the morning which she started 1st dose today. She good like to have Lexapro decreased. However she signed a 3 day notice, we will not have enough time to manage her medication with many changes. Leave it to outpatient provider to manage her medication after discharge. Interested in PHP at [facility]. 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 No safety concerns. Denies voices, hallucination. Appear to be visible social and attending groups this morning. Review lab results with patient. Educated on healthy diet and healthy lifestyle. She expressed PHP interest but she said she can also refer herself after discharge. drywall metal stud worker was aware. She does not want to retracted 3 day. However agreed to have Wellbutrin increased up to 300 mg from 150 for depression/ anxiety. 1st dose given this morning. Deny suicidal thoughts, voices, self-harm thoughts, or homicidal thoughts 02/24 Patient notes that she feels ?good. She is looking forward to go home tomorrow. She has been taking her medications as prescribed without adverse reactions and attending groups. She no longer intends to drink alcohol. She denies history of drug use. She currently denies anxiety, depression, SI/HI/AH/VH. Patient did not want help with substance abuse treatment including MAT or programs. Remained in good behavioral and impulse control throughout her time in the unit and was appropriate with peers and staff; no SI at all, future oriented and patient feeling back to her regular self. Patient's 3 day notice coming due and she is not in imminent risk for harm to self or others and appropriate to return to the community for treatment. Her request for discharge honored. Status at Discharge Functional status at discharge: independent ambulation Overall status at discharge: patient is back to baseline Time Spent with Patient Time attestation: Total time managing care of this patient today ____ minutes. Time spent: Less than 30 minutes Discharge Plan Discharge Anticipated Discharge Date/Time: 02/25/25 11:30 Patient Disposition: Home, Self-Care Discharge Diagnosis: anxiety, MDD, AUD Referrals: [facility]iat[facility] Nadya Aunel [Other] - 03/21/25 10:40 am Referral Note: Telehealth [facility] Therapy cynthia Naz Diop [Other] - 02/28/25 11:00 am Referral Note: Telehealth [facility] Partial Hospitalization Intake [Other] - 03/16/25 8:00 am Referral Note: Vinita Mcgill MD [Primary Care Provider, Internal Medicine] - 1 Week Referral Note: Please follow up Discharge Medications: New buspirone 5 mg Tablet 15 mg PO TID Qty: 30 0RF trazodone 50 mg Tablet 50 mg PO BEDTIME MRX1 PRN (Reason: Insomnia) Qty: 30 0RF prazosin 1 mg Capsule 4 mg PO BEDTIME Qty: 30 0RF Protocol: Hold for SBP< HOLD for SBP < : 90 clonazepam 1 mg Tablet 1 mg PO TID PRN (Reason: Anxiety) Qty: 0 0RF valsartan [Diovan] 320 mg Tablet 320 mg PO DAILY Qty: 30 0RF Protocol: Hold for SBP< HOLD for SBP < : 90 escitalopram oxalate 20 mg Tablet 20 mg PO DAILY Qty: 30 0RF bupropion HCl 300 mg Tablet Extended Release 24 Hr 300 mg PO DAILY Qty: 30 0RF cholecalciferol (vitamin D3) 25 mcg (1,000 unit) Tablet 50 mcg PO DAILY 30 Days Qty: 60 0RF zolpidem 5 mg Tablet 10 mg PO BEDTIME PRN (Reason: Insomnia) Qty: 0 0RF Continued hydroxyzine pamoate 25 mg capsule 25 mg PO BEDTIME PRN (Reason: Anxiety) 30 Days Qty: 30 0RF Discontinued zolpidem 10 mg tablet 5 - 10 mg PO BEDTIME PRN (Reason: Sleep) cholecalciferol (vitamin D3) 50 mcg (2,000 unit) tablet 50 mcg PO DAILY clonazepam 1 mg tablet 1 mg PO TID PRN (Reason: Anxiety) valsartan 320 mg tablet 320 mg PO DAILY prazosin 2 mg capsule 4 mg PO BEDTIME buspirone 15 mg tablet 15 mg PO TID escitalopram oxalate 20 mg tablet 20 mg PO DAILY bupropion HCl 150 mg tablet extended release 24 hr 150 mg PO DAILY Discharge Orders: Discharge Order (Routine); Ordered 02/25/25 Ordered By: Fidel Evans Diet: Regular diet Activity on Discharge: As tolerated Stand Alone Forms: Patient Portal Discharge page, Community Support Print Language: Kiswahili Care Plan Goals: Maintain mood and safe behaviors Take medications as prescribed Continue to pursue sobriety Practice coping skills Continue with outpatient providers and reach out to them as needed Health Concerns: Mood stability and behaviors Sobriety Plan of Treatment: Follow up with your PCP, psychiatric provider and other outpatient providers regarding above concerns Take medications as prescribed Assessment: Risk assessment at time of discharge:? Patient was interviewed prior to discharge and found to be fully oriented and without any SI or HI. Patient has improved insight and judgment and wants to continue treatment. Patient is not in imminent risk of harm to self or others and has a safety plan that includes presenting to the closest ER or calling 911 if feeling unsafe.? Patient has been observed closely by nursing and unit staff throughout admission; patient has not engaged in any behaviors that suggest dangerousness to self or others and has demonstrated appropriate behaviors and impulse control
== END 2025-02-25 11:32 | disposition home or self-care (01) | DRG 885 ==
LOC: HO.ED 02-22 13:46 → HO.PM5 02-22 14:38
PROVIDERS: Admitting Provider Psychiatry & Neurology Psychiatry; Emergency Provider Emergency Medicine; PCP Internal Medicine; Visit Provider Psychiatry & Neurology Psychiatry
DX: F33.9 Major depressive disorder, recurrent, unspecified (principal); R45.851 Suicidal ideations; F41.9 Anxiety disorder, unspecified; F43.10 Post-traumatic stress disorder, unspecified; F10.10 Alcohol abuse, uncomplicated; F17.210 Nicotine dependence, cigarettes, uncomplicated; Z71.6 Tobacco abuse counseling; Y90.6 Blood alcohol level of 120-199 mg/100 ml; Z79.899 Other long term (current) drug therapy
CPT/HCPCS: 36415; 80048; 80053; 80061; 80076; 80307; 81003; 83036; 83735; 84443; 85025; 93005; 99285; S9485

== ENCOUNTER → 2025-02-22 10:45 | Outpatient (BNV) | payer MEDICARE, SELFPAY | PROVIDERS: Admitting Provider Psychiatry & Neurology Psychiatry; Emergency Provider Emergency Medicine; PCP Internal Medicine; Visit Provider Internal Medicine Cardiovascular Disease | DX: R94.31 Abnormal electrocardiogram [ECG] [EKG] (principal); Z13.6 Encounter for screening for cardiovascular disorders | CPT/HCPCS: 93010 ==

== ENCOUNTER → 2025-02-22 13:06 | Outpatient (BNV) | payer OTHER, SELFPAY | PROVIDERS: Admitting Provider Psychiatry & Neurology Psychiatry; Emergency Provider Emergency Medicine; PCP Internal Medicine; Visit Provider Nurse Practitioner Psychiatric/Mental Health | DX: F33.2 Major depressive disorder, recurrent severe without psychotic features (principal); F43.11 Post-traumatic stress disorder, acute; F41.9 Anxiety disorder, unspecified; F10.90 Alcohol use, unspecified, uncomplicated | CPT/HCPCS: 99238 ==

== ENCOUNTER 2025-04-01 09:30 | Outpatient (RCR) | payer MEDICARE, OTHER, SELFPAY ==
[2025-03-17 11:06] VITALS: BMI 25.3
--- NOTE | 2025-03-17 12:11 | PC.ADMIT ---
Patient is a 59 year old partnered female who was referred to [facility] by [facility] behavioral health unit where patient was admitted from 02/22-02/25/25. According to records patient struggles with alcohol use and depression. Patient reportedly told her son prior to hospitalization that she was going to kill herself by overdosing on medication and that she has not reason to live. Patient's son reportedly did a wellness check on patient as a result. Patient was taken to [facility] via ambulance and was subsequently hospitalized. Patient BAL 163 on 02/22/25 and Toxicology was positive for Marijuana. Patient stated to this underwriter that she received an OUI. She stated when the police came to her home to do a wellness check she was in her car in the driveway. She stated she had 2 nips of alcohol and was not intoxicated. Patient reports she has to attend court on Friday03/21/25 as a result. Patient is alert and oriented x4. She is calm and cooperative. She presented with depressed mood and affect. She denied SI, no HI. She received a copy of her safety plan if needed. Patient medications updated with patient and [facility] inpatient d/c paperwork. Patient reports taking medication as prescribed however she stated she thought she was told to stop Escitalopram by the inpatient unit and stated she must have misunderstood. Patient stated she has not taken Escitalopram since 02/25/25 when she was discharged from hospital. Dr. Serrano is aware. Patient reports she lives with her boyfriend Thomas.
[2025-03-17 12:13] VITALS: BP 90/58; PULSE 64; TEMP 36.6
[2025-03-17 15:41] LABS: Cannabinoid Screen Urine POSITIVE (Not Detect)
--- NOTE | 2025-03-17 16:07 | HO.PHP ---
Pt's case has been opened and reviewed in treatment team.
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
--- NOTE | 2025-03-25 12:06 | HO.PHP ---
[facility] staff member met with Swati who was struggling due to coming down from a panic attack this morning. Swati shared that she woke up with a panic attack due to a dream she had. [facility] staff member worked with Swati on grounding and validating her feelings. [facility] staff member encouraged Swati to engage in focusing on coping skills today opposed to processing since she feels as though the processing has been bringing up a lot of past emotions that she hasn't dealt with. Swati appeared receptive. [facility] staff member engaged in reflective listening and provided support as need. Dr. Serrano entered the room and stated she had to meet with Swati, therefore, Dr. Serrano continued with her.
--- NOTE | 2025-03-25 19:08 | HO.PHPPROGNO ---
Subjective Subjective Date of Service: 03/25/25 Reason For Visit: depression,PTSD Interim History: Patient presented as very emotional today, wept through entire encounter. I felt overwhelmed when I left here yesterday, I brought it home with me. I woke up with it . Took a Klonopin this AM. Tried taking gabapentin 300 mg last night which did helped with sleep a little. SHe has not been drinking and feels this may be giving her some clarity and facing some of these emotions . Denies any thoughts of giving up on life. Mental Status Exam Mental Status Exam Narrative: Alert, oriented, in no acute distress. Calm, cooperative, engaged. No psychomotor agitation or neurovegetative retardation. Eye contact maintained. Mood depressed, affect dysthymic, tearful. Speech normal, soft, flat without slowing. Thought process linear, coherent, delay in some responses. Thought content related to stressors, transient hopelessness, denies SI, intention, urge or plan to harm self. Denies any aggressive ideation or HI. No paranoia or delusional content elicited. No evidence of psychosis. Insight and judgment fair. Diagnostics Vital Signs (24Hr): BMI result Body Mass Index 25.3 Assessment & Plan Assessment & Plan (1) Alcohol use disorder: Status: Acute Code(s): F10.90 - Alcohol use, unspecified, uncomplicated (2) MDD (major depressive disorder), recurrent episode: Qualifiers: Major depression episode severity: unspecified Qualified Code(s): F33.9 - Major depressive disorder, recurrent, unspecified Status: Acute Code(s): F33.9 - Major depressive disorder, recurrent, unspecified Assessment and Plan: rule out Bipolar II Disorder (3) Post traumatic stress disorder (PTSD): Status: Acute Code(s): F43.10 - Post-traumatic stress disorder, unspecified (4) Alcohol abuse with unspecified alcohol-induced disorder: Status: Inactive Code(s): F10.19 - Alcohol abuse with unspecified alcohol-induced disorder (5) Nicotine dependence: Qualifiers: Nicotine product type: cigarettes Substance use status: uncomplicated Qualified Code(s): F17.210 - Nicotine dependence, cigarettes, uncomplicated Status: Acute Code(s): F17.200 - Nicotine dependence, unspecified, uncomplicated Assessment and Plan: . (6) Impaired cognition: Status: Acute Code(s): R41.89 - Other symptoms and signs involving cognitive functions and awareness Assessment and Plan: scattered memory impairment (temporal) - will further assess cognition next visit. No evidence of AMS. r/o post-concussive syndrome (?mild TBI s/p fall recently a few months ago) r/o dissociative disorder (r/t ptsd) r/o concentration and attentional issues (r/t anxiety, depression vs developmental issues) r/o other causes for cognitive impairment (general medical causes/ encephalopathy- HTN, Etoh) r/o behavioral (ie pt intentionally being evasive) Plan continue PHP VS reviewed: afebrile, BP 90/58;?64 bpm start quetiapine 12.5-25 mg qd prn anxietyu and 50-75 mg qhs prn sleep start lamotrigine 25 mg qd (increase by 25 mg/d q 2 weeks until 100 mg/d) continue gabapentin 300 mg BID-TID for anxiety, AUD trtmt continue regular medications for now Routine lab work as indicated EKG, routine for baseline QTc for medication considerations as indicated UDS as indicated MassPat reviewed Continue to monitor Patient educated on: diagnosis, medication risk/benefits and substance abuse Informed Consent: understands Reason for contiued partial hosp. stay Substantial Risk for: inability to function, rapid decompensation and med/psych decompensation Certification I certify that partial hospital treatment is medically necessary due to the symptoms and problems resulting from the patient's mental illness and the failure to treat the patient at the partial hospital level of care would likely result in the patient requiring inpatient psychiatric care which could not be prevented at a less intensive level of care. Total time managing care of this patient today __30__ minutes. Discharge Plan Discharge Attending provider: Raeann Serrano Medications: New gabapentin 300 mg capsule 300 mg PO TID Qty: 30 0RF quetiapine 25 mg tablet See Rx Instructions .ROUTE .COMPLEX Qty: 30 0RF Rx Instructions: take 1/2 - 1 tablet po BID PRN anxiety; take 2-3 tablets po qhs PRN sleep Continued buspirone 5 mg Tablet 15 mg PO TID Qty: 30 0RF prazosin 1 mg Capsule 4 mg PO BEDTIME Qty: 30 0RF Protocol: Hold for SBP< HOLD for SBP < : 90 clonazepam 1 mg Tablet 1 mg PO TID PRN (Reason: Anxiety) Qty: 0 0RF valsartan [Diovan] 320 mg Tablet 320 mg PO DAILY Qty: 30 0RF Protocol: Hold for SBP< HOLD for SBP < : 90 bupropion HCl 300 mg Tablet Extended Release 24 Hr 300 mg PO DAILY Qty: 30 0RF cholecalciferol (vitamin D3) 25 mcg (1,000 unit) Tablet 50 mcg PO DAILY 30 Days Qty: 60 0RF hydroxyzine pamoate 25 mg capsule 25 mg PO BEDTIME PRN (Reason: Anxiety) 30 Days Qty: 30 0RF Changed lamotrigine 25 mg tablet See Rx Instructions .ROUTE .COMPLEX Qty: 80 0RF Rx Instructions: take 2 tablet po daily x 2 weeks, then increase to 3 tablets po daily Discontinued trazodone 50 mg Tablet 50 mg PO BEDTIME MRX1 PRN (Reason: Insomnia) Qty: 30 0RF escitalopram oxalate 20 mg Tablet 20 mg PO DAILY Qty: 30 0RF zolpidem 5 mg Tablet 10 mg PO BEDTIME PRN (Reason: Insomnia) Qty: 0 0RF Patient Education: Depression (DC), PTSD (Post Traumatic Stress Disorder) (DC), Anxiety (ED) Print Language: Puerto Rican
--- NOTE | 2025-03-28 10:13 | HO.PHP ---
Spoke with Sergio Holbrook from [facility]. Pt was provided an additional 5 days. Her new discharge date is 04/01/25.
--- NOTE | 2025-03-28 22:40 | HO.PHPPROGNO ---
Subjective Subjective Date of Service: 03/28/25 Reason For Visit: depression,PTSD Interim History: Patient seen for follow-up. Mood is still up and down, but more level. Not notably labile the past few days. Was uncertain about Seroquel dosing during the day. Anxiety persists. She has been taking 50 mg at night and has helped well with sleep. Continues on gabapentin. Denies any SI. No HI, AH, VH. Appetite good, energy variable. Medication Compliance: Yes Side effects from medications: No Attending Groups: Yes Review of Systems Acute medical concerns: No Mental Status Exam Mental Status Exam Narrative: Alert, oriented, in no acute distress. Calm, cooperative, engaged. No psychomotor agitation or neurovegetative retardation. Eye contact maintained. Mood depressed, affect dysthymic, tearful. Speech normal, soft, flat without slowing. Thought process linear, coherent, delay in some responses. Thought content related to stressors, transient hopelessness, denies SI, intention, urge or plan to harm self. Denies any aggressive ideation or HI. No paranoia or delusional content elicited. No evidence of psychosis. Insight and judgment fair. Diagnostics Vital Signs (24Hr): BMI result Body Mass Index 25.3 Assessment & Plan Assessment & Plan (1) Alcohol use disorder: Status: Acute Code(s): F10.90 - Alcohol use, unspecified, uncomplicated (2) MDD (major depressive disorder), recurrent episode: Qualifiers: Major depression episode severity: unspecified Qualified Code(s): F33.9 - Major depressive disorder, recurrent, unspecified Status: Acute Code(s): F33.9 - Major depressive disorder, recurrent, unspecified Assessment and Plan: rule out Bipolar II Disorder (3) Post traumatic stress disorder (PTSD): Status: Acute Code(s): F43.10 - Post-traumatic stress disorder, unspecified (4) Alcohol abuse with unspecified alcohol-induced disorder: Status: Inactive Code(s): F10.19 - Alcohol abuse with unspecified alcohol-induced disorder (5) Nicotine dependence: Qualifiers: Nicotine product type: cigarettes Substance use status: uncomplicated Qualified Code(s): F17.210 - Nicotine dependence, cigarettes, uncomplicated Status: Acute Code(s): F17.200 - Nicotine dependence, unspecified, uncomplicated Assessment and Plan: . (6) Impaired cognition: Status: Acute Code(s): R41.89 - Other symptoms and signs involving cognitive functions and awareness Assessment and Plan: scattered memory impairment (temporal) - will further assess cognition next visit. No evidence of AMS. r/o post-concussive syndrome (?mild TBI s/p fall recently a few months ago) r/o dissociative disorder (r/t ptsd) r/o concentration and attentional issues (r/t anxiety, depression vs developmental issues) r/o other causes for cognitive impairment (general medical causes/ encephalopathy- HTN, Etoh) r/o behavioral (ie pt intentionally being evasive) Plan continue PHP continue quetiapine 12.5-25 mg qd prn anxiety and 50-75 mg qhs prn sleep continue lamotrigine 25 mg qd (increase by 25 mg/d q 2 weeks until 100 mg/d) continue gabapentin 300 mg BID-TID for anxiety, AUD trtmt patient no longer taking trazodone, zolpidem, escitalopram continue regular medications for now Routine lab work as indicated EKG, routine for baseline QTc for medication considerations as indicated UDS as indicated MassPat reviewed Continue to monitor Patient educated on: diagnosis, medication risk/benefits and substance abuse Informed Consent: understands Reason for contiued partial hosp. stay Substantial Risk for: inability to function and med/psych decompensation Certification I certify that partial hospital treatment is medically necessary due to the symptoms and problems resulting from the patient's mental illness and the failure to treat the patient at the partial hospital level of care would likely result in the patient requiring inpatient psychiatric care which could not be prevented at a less intensive level of care. Total time managing care of this patient today _30___ minutes. Discharge Plan Discharge Attending provider: Raeann Serrano Medications: New gabapentin 300 mg capsule 300 mg PO TID Qty: 30 0RF quetiapine 25 mg tablet See Rx Instructions .ROUTE .COMPLEX Qty: 30 0RF Rx Instructions: take 1/2 - 1 tablet po BID PRN anxiety; take 2-3 tablets po qhs PRN sleep Continued buspirone 5 mg Tablet 15 mg PO TID Qty: 30 0RF prazosin 1 mg Capsule 4 mg PO BEDTIME Qty: 30 0RF Protocol: Hold for SBP< HOLD for SBP < : 90 clonazepam 1 mg Tablet 1 mg PO TID PRN (Reason: Anxiety) Qty: 0 0RF valsartan [Diovan] 320 mg Tablet 320 mg PO DAILY Qty: 30 0RF Protocol: Hold for SBP< HOLD for SBP < : 90 bupropion HCl 300 mg Tablet Extended Release 24 Hr 300 mg PO DAILY Qty: 30 0RF cholecalciferol (vitamin D3) 25 mcg (1,000 unit) Tablet 50 mcg PO DAILY 30 Days Qty: 60 0RF hydroxyzine pamoate 25 mg capsule 25 mg PO BEDTIME PRN (Reason: Anxiety) 30 Days Qty: 30 0RF Changed lamotrigine 25 mg tablet See Rx Instructions .ROUTE .COMPLEX Qty: 80 0RF Rx Instructions: take 2 tablet po daily x 2 weeks, then increase to 3 tablets po daily Discontinued trazodone 50 mg Tablet 50 mg PO BEDTIME MRX1 PRN (Reason: Insomnia) Qty: 30 0RF escitalopram oxalate 20 mg Tablet 20 mg PO DAILY Qty: 30 0RF zolpidem 5 mg Tablet 10 mg PO BEDTIME PRN (Reason: Insomnia) Qty: 0 0RF Patient Education: Depression (DC), PTSD (Post Traumatic Stress Disorder) (DC), Anxiety (ED) Print Language: Beninese
--- NOTE | 2025-04-01 14:01 | HO.PHPPROGNO ---
Subjective Subjective Date of Service: 04/01/25 Reason For Visit: depression,PTSD Interim History: Patient seen for follow-up, anticipating discharge at the end of program today.? Overall reports feeling much better. Pleasant, smiling and agreeable. Will be following up with psych provider in 2 weeks. Reports no acute issues or concerns. Medication compliant, medications well-tolerated. Denies any adverse effects.? Mood is stable.? Denies any hopelessness or SI. Denies thoughts of harming self or others at this time. Denies any aggressive ideation or HI. Denies any paranoia or AH or VH. Sleep, appetite, energy stable. Medication Compliance: Yes Side effects from medications: No Attending Groups: Yes Review of Systems Acute medical concerns: No Mental Status Exam Mental Status Exam Narrative: Alert, oriented, in no acute distress. Calm, cooperative. Mood stable, affect appropriate. Speech normal. Thought process linear, coherent, more goal-directed. Thought content related to stressors, future-oriented, denies any helplessness, hopelessness or SI.? No aggressive ideation or HI. No paranoia or delusional content elicited. No evidence of psychosis. Insight and judgment fair-good. Diagnostics Vital Signs (24Hr): BMI result Body Mass Index 25.3 Assessment & Plan Assessment & Plan (1) Alcohol use disorder: Status: Acute Code(s): F10.90 - Alcohol use, unspecified, uncomplicated (2) MDD (major depressive disorder), recurrent episode: Qualifiers: Major depression episode severity: unspecified Qualified Code(s): F33.9 - Major depressive disorder, recurrent, unspecified Status: Acute Code(s): F33.9 - Major depressive disorder, recurrent, unspecified (3) Post traumatic stress disorder (PTSD): Status: Acute Code(s): F43.10 - Post-traumatic stress disorder, unspecified (4) Alcohol abuse with unspecified alcohol-induced disorder: Status: Inactive Code(s): F10.19 - Alcohol abuse with unspecified alcohol-induced disorder (5) Nicotine dependence: Qualifiers: Nicotine product type: cigarettes Substance use status: uncomplicated Qualified Code(s): F17.210 - Nicotine dependence, cigarettes, uncomplicated Status: Acute Code(s): F17.200 - Nicotine dependence, unspecified, uncomplicated Assessment and Plan: . Plan Discharge from [facility] Continue regular medications? Refills sent to pharmacy Will defer further medication management to outpatient provider *Safety plan reviewed *Discharge diagnoses, treatment course, discharge plan have been reviewed with patient (including medication regime, medication management, potential side effects) as well as treatment rationale were also revisited *Discharge paperwork signed and given to patient, copy sent for scanning to chart Patient educated on: diagnosis, medication risk/benefits and substance abuse Informed Consent: understands Reason for contiued partial hosp. stay Substantial Risk for: stable for discharge Certification I certify that partial hospital treatment is medically necessary due to the symptoms and problems resulting from the patient's mental illness and the failure to treat the patient at the partial hospital level of care would likely result in the patient requiring inpatient psychiatric care which could not be prevented at a less intensive level of care. Total time managing care of this patient today _30___ minutes. Discharge Plan Discharge Attending provider: Raeann Serrano Medications: New gabapentin 300 mg capsule 300 mg PO TID Qty: 30 0RF quetiapine 25 mg tablet See Rx Instructions .ROUTE .COMPLEX Qty: 30 0RF Rx Instructions: take 1/2 - 1 tablet po BID PRN anxiety; take 2-3 tablets po qhs PRN sleep Continued buspirone 5 mg Tablet 15 mg PO TID Qty: 30 0RF prazosin 1 mg Capsule 4 mg PO BEDTIME Qty: 30 0RF Protocol: Hold for SBP< HOLD for SBP < : 90 clonazepam 1 mg Tablet 1 mg PO TID PRN (Reason: Anxiety) Qty: 0 0RF valsartan [Diovan] 320 mg Tablet 320 mg PO DAILY Qty: 30 0RF Protocol: Hold for SBP< HOLD for SBP < : 90 bupropion HCl 300 mg Tablet Extended Release 24 Hr 300 mg PO DAILY Qty: 30 0RF cholecalciferol (vitamin D3) 25 mcg (1,000 unit) Tablet 50 mcg PO DAILY 30 Days Qty: 60 0RF hydroxyzine pamoate 25 mg capsule 25 mg PO BEDTIME PRN (Reason: Anxiety) 30 Days Qty: 30 0RF Changed lamotrigine 25 mg tablet See Rx Instructions .ROUTE .COMPLEX Qty: 80 0RF Rx Instructions: take 2 tablet po daily x 2 weeks, then increase to 3 tablets po daily Discontinued trazodone 50 mg Tablet 50 mg PO BEDTIME MRX1 PRN (Reason: Insomnia) Qty: 30 0RF escitalopram oxalate 20 mg Tablet 20 mg PO DAILY Qty: 30 0RF zolpidem 5 mg Tablet 10 mg PO BEDTIME PRN (Reason: Insomnia) Qty: 0 0RF Patient Education: Depression (DC), PTSD (Post Traumatic Stress Disorder) (DC), Anxiety (ED) Print Language: Croatian
== END 2025-04-01 23:59 | disposition home or self-care (01) ==
LOC: HO.PHPA 09:30
PROVIDERS: Visit Provider Psychiatry & Neurology Psychiatry
DX: F10.19 Alcohol abuse with unspecified alcohol-induced disorder (principal); F33.9 Major depressive disorder, recurrent, unspecified; F43.10 Post-traumatic stress disorder, unspecified; R41.89 Other symptoms and signs involving cognitive functions and awareness; F17.210 Nicotine dependence, cigarettes, uncomplicated
CPT/HCPCS: 80307; 90791; 90853

== ENCOUNTER → 2025-04-01 09:30 | Outpatient (BNV) | payer OTHER, SELFPAY | PROVIDERS: Visit Provider Psychiatry & Neurology Psychiatry | DX: F33.1 Major depressive disorder, recurrent, moderate (principal); F43.11 Post-traumatic stress disorder, acute; F10.19 Alcohol abuse with unspecified alcohol-induced disorder; F17.210 Nicotine dependence, cigarettes, uncomplicated | CPT/HCPCS: 90832 ==

== ENCOUNTER 2025-06-03 09:27 | Outpatient (AMB) | payer MEDICARE, SELFPAY ==
--- NOTE | 2025-06-03 09:32 | AM.OFFWIN_ITS ---
Intake Vital Signs 06/03/25 09:38 Height 5 ft 6 in Weight 160 lb BMI 25.8 BP 108/70 Blood Pressure Location Rt brachial Position Sitting Pulse 91 Pulse Source Pulse Oximeter Temp 97.5 F Temp Source Oral Pulse Oximetry (%) 98 Oxygen Delivery Method Room Air Intake Visit Reasons: EP Left arm pain/cannot move [phone] Intake Note: Patient presents for left arm/shoulder pain that radiates down to left wrist. Patient Tobacco Use Status: Current everyday Tobacco user Allergies meperidine (From DEMEROL) Allergy (Unknown, Verified 06/03/25 09:39) UNKNOWN Do you need a note to return to daycare/school/sports/work: No HPI HPI Comments History of Present Illness Details This is a 59-year-old female with PMHx: anxiety/depression, alcohol use disorder, essential hypertension who presented to the walk-in clinic complaining of left shoulder pain radiating to her left forearm x1 week. Patient denies any known or specific trauma or injury and states that she woke up with the pain one morning about 1 week ago. She states the pain starts in her scapular region and radiates down her posterior shoulder and into her posterior forearm but stops just proximal to her left wrist. She denies any numbness or paresthesias of the left arm. She reports her left arm feels weak. She states the pain is rated at approximately an 8/10. She does feel a significant amount of relief when her shoulder is abducted with her forearm above her head as well as when her shoulders internally rotated with her arm resting against her abdomen. She denies any chest pain or shortness of breath. She denies any facial asymmetry, slurred speech, or visual disturbances. She denies any neck pain or injury/trauma. [facility] Medical History (Updated 03/21/25 @ 04:22 by Raeann Serrano MD) Post traumatic stress disorder (PTSD) Prolonged QT interval Overdose of clonazepam MDD (major depressive disorder), recurrent episode Alcohol abuse with unspecified alcohol-induced disorder Hypertension Social History Household Members: Significant Other Household Members Other:: PARTNER Housing: Apartment Do you presently have visiting nurse or other home services: No Alcohol intake: current Alcohol intake frequency: a few times a week Alcohol type: hard liquor Comment: Insurance review 03/25/25 Patient Tobacco Use Status: Current everyday Tobacco user Tobacco use type: Cigarette Cigarette Packs Per Day: 0.5 Cigarettes Per Day: 10.0 Years Smoked: 30 Second Hand Smoke Exposure: No service: No Sexual orientation: Straight/Heterosexual Review of Systems Const All systems reviewed & are unremarkable except as noted in HPI and below Reports no additional complaints Eyes Reports no additional complaints ENT Reports no additional complaints Card Reports no additional complaints Resp Reports no additional complaints GI Reports no additional complaints Reports no additional complaints Musc Reports no additional complaints Skin/Breast Reports system reviewed and no additional complaints, except as documented Neuro Reports no additional complaints Psych Reports no additional complaints Endo Reports no additional complaints Karel/Lymph Reports no additional complaints Aller/Immun Reports no additional complaints Physical Exam Exam Exam: Vital signs reviewed. Constitutional: Non-toxic appearing. No acute distress. Well-developed and well-nourished. HEENT: Normocephalic and atraumatic. Skin: Warm and dry. No rashes or lesions noted. Neck: Full and painless range of motion. No cervical lymphadenopathy. No cervical spinous or midline tenderness to palpation. Cardio: Regular rate. No lower extremity edema. No JVD. Pulmonary: No respiratory distress. No accessory muscle usage. Musculoskeletal: She has tenderness to palpation and muscle spasm of the left trapezius muscle with tenderness to palpation of the bicipital groove. She has weakness of the brachioradialis as well as weakness with shoulder flexion and supination/pronation. She has full range of motion with shoulder internal rotation and external rotation. Neuro: Alert and oriented x4. Cranial nerves II-XII grossly intact. Psych: Anxious and tearful. Vital Signs: Last Vital Signs Temp 97.5 F 06/03/25 09:38 Pulse 91 06/03/25 09:38 BP 108/70 06/03/25 09:38 Pulse Ox 98 06/03/25 09:38 Oxygen Delivery Method Room Air 06/03/25 09:38 BMI result Body Mass Index 25.8 Office Meds ibuprofen 200 mg tablet Performing Provider: VIDA Abreu Performing Location: [facility]In [facility] Administered by: VIDA Abreu on 06/03/25 10:13 Dose Route Admin Location Dispensed Lot Number Expiration Date [facility] [employer] Super[employer] 600 mg PO 600 mg [id number] 04/18/26 6376-2564-98 [facility] Assessment & Plan Assessment & Plan (1) Radial neuropathy: Code(s): G56.30 - Lesion of radial nerve, unspecified upper limb Qualifiers: Laterality: left Qualified Code(s): G56.32 - Lesion of radial nerve, left upper limb Plan 59-year-old female with PMHx: anxiety/depression, alcohol use disorder, essentia l hypertension who presented to the walk-in clinic complaining of left shoulder pain radiating to her left forearm x1 week. Her history and physical exam are most consistent with a periperhal neuropathy likely secondary to nerve compression/impingement during sleep as patient is on multiple sedating medications for history of anxiety; CVA was considered although is considered significantly less likely given presence of neuropathic pain associated with the weakness and patient is otherwise neurologically intact without any focal neurological deficits. I have recommended symptomatic management to include rest/activity modification, PO ibuprofen 600 mg 3 times daily x7 days to target inflammation, and a shoulder sling to provide pain relief during the day with gentle range of motion exercises multiple times a day to avoid adhesive capsulitis. I also recommended a physical therapy referral; however, patient declined at this time and would like to trial anti-inflammatories first and if pain continues, she will return to the walk-in clinic for re-evaluation for physical therapy referral. Patient was instructed to proceed directly to the emergency room if she were to develop any symptoms of CVA including facial asymmetry, slurred speech, visual disturbances, etc. Patient verbalized understanding and is agreeable with the plan. 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
[2025-06-03 09:38] VITALS: BP 108/70; PULSE 91; TEMP 36.4; O2SAT 98; BMI 25.8
--- OUTSIDE RECORDS SUMMARY | 2025-06-03 10:31 | XMS_ITS | Encounter Summary ---
Author Organization [facility] Address [address] [place] [address] Care Team Providers Care Director Drug Safety Name Role Phone Vinita Mcgill MD Primary Care Provider [phone] Encounter Details Date Type Department Care Team ([facility] Contact Info) Description 06/02/2025 Telephone Internal Medicine - [place] [address] [phone] Vinita Mcgill MD [address] [phone] Social History Tobacco Use Types Packs/Day Years Used Date Smoking Tobacco: Every Day Smokeless Tobacco: Never Alcohol Use Standard Drinks/Week Comments No 0 (1 standard drink = 0.6 oz pur e alcohol) Comments Unknown Sex and Gender Information Value Date Recorded Sex Assigned at Not on file Legal Sex Female 9:33 AM EST Gender Identity Not on file Sexual Orientation Not on file documented as of this encounter Plan of Treatment Upcoming Encounters Date Type Department Care Team (Late Contact Info) Description 06/06/2025 3:00 PM EDT Office Visit Internal Medicine - [place] [address] [phone] Marquise Sanchez NP [address] [phone] documented as of this encounter Visit Diagnoses Not on filedocumented in this encounter Care Teams Director Drug Safety Relationship Specialty Start Date End Date Vinita Mcgill MD PCP - General Internal Medicine 04/27/19 documented as of this encounter
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
--- OUTSIDE RECORDS SUMMARY | 2025-06-03 10:31 | XMS_ITS ---
Author Name [facility] Organization Unknown Care Team Organization Name Specialty Phone Email Start Date End Da te [facility] Primary Care 06/25/2022 04/05/20 24
--- OUTSIDE RECORDS SUMMARY | 2025-06-03 10:31 | XMS_ITS | Clinical Summary ---
Author Organization [facility] Address [address] [place] [address] Care Team Providers Care Manager Psychology Name Role Phone Maykel Serrano MD Unavailable [phone] Siobhan Cota MD Unavailable Unavailable Nixon TENORIO MD, Tima Ruff Primary Care Prov ider Allergies Active Allergy Reactions Criticality Noted Date Comments Meperidine Unknown 12/29/2012 Social History Tobacco Use Types Packs/Day Years [...] 71 10/28/2024 10:33 PM EDT Temperature 36.4 C (97.6 F) 10/28/2024 5:09 PM EDT Respiratory Rate 20 10/28/2024 10:33 PM EDT Oxygen Saturation 97% 10/28/2024 10:33 PM EDT Inhaled Oxygen Concentration - - Weight - - Height 167.6 cm (5' 6 ) 10/28/2024 5:09 PM EDT Body Mass Index - - Plan of Treatment Health Maintenance Due Date [...] 11/28/2008, 07/18, 04/07/2008, Additional history exists Pneumococcal Vaccine: 50+ Years (1 of 1 - PCV) 2015 Zoster Vaccine (1 of 2) 2015 COVID-19 Vaccine (1 - ) 04/18/2025 Influenza Vaccine (#1) 2025 Blood Pressure 10/28/2025 10/28/2024 Meningococcal B Vaccines Aged Out No longer eligible based on patient's age to complete this topic Meningococcal Vaccines Aged Out No lo nger eligible based on patient's age to complete this topic Procedures Procedure Name Priority Date/Time Associated Diagnosis Comments LIQUID-BASED PAP, REFLEX HPV IF ASC-US Routine 11/28/2008 from Last 3 Months or Most Recently Relevant to Health Maintenance Results * LB PAP, Screen, reflex HPV if ASC-US (11/28/2008) 11/28/2008 11/28/2008 7:4 9 AM EDT Narrative CONVERSION FROM [facility] - 12/07/2008 11:46 AM EDT CYTOLOGY DIAGNOSIS SATISFACTORY FOR EVALUATION, ENDOCERVICAL COMPONENT ABSENT Negative for intraepithelial lesion or malignancy SHIFT IN SHELLY SUGGESTIVE OF BACTERIAL VAGINOSIS EDUCATION NOTES AND SUGGESTIONS: Lack of transformation zone component does not warrant an early repeat cytology. Attention to regular screening is suggested. Dictated by: MANUEL FAIR NOTES: This is the result of a screening test with inherent, but low, probability of error. Your patient should be reminded to consult you immediately if she experiences any suspicious signs or symptoms, regardless of her Pap test result. PATH PROCEDURES: THIN PREP MAN SPECIMEN DESCRIPTION: 1 VIAL/SOURCE OF SPECIMEN WAS NOT PROVIDED CLINICAL HISTORY: CLINICAL DIAGNOSIS 795.00 Signed Electronically Signed MANUEL FAIR 12/07/08 1146 Laura Rose MD PATHOLOGY/CYTOLOGY ORDERABLES Final Result CONVERSION FROM [email or web address] from Last 3 Months or Most Recently Relevant to Health Maintenance Insurance [employer]VANTAGE UNITED MED[employer]ARE [employer]VANTAGE [employer]VANTAGE Member Subscriber Plan / Payer (Ef fective 2024-Present) Name:Swati Lim Relation to Subscriber:Self Name:Swati Lim Payer ID:[id number] (NAIC) Group ID:[id number] Type:Medicare / Managed Care Address: [place] [phone] [employer]ANT[employer] Member Subscriber Plan / Payer (Ef fective 2024-Present) Name:Swati Lim Relation to Subscriber:Self Name:Swati Lim Payer ID:[id number] (NAIC) Group ID:[id number] Type:Medicare / Managed Care Address: [place] [phone] Care Teams Manager Psychology Relationship Specialty Start Date End Date Maykel Serrano MD [address] [place] [address] [phone] PCP - Insurance Assigned PCP 10/20/24 Tima Alicea III, MD [address] [place] [address] [address] [place] [address] PCP - General Family Practice 04/20/25 Siobhan Cota MD 10/21/17
== END 2025-06-03 10:33 | disposition home or self-care (01) ==
PROVIDERS: Visit Provider Physician Assistant Medical
DX: G56.10 Other lesions of median nerve, unspecified upper limb (principal); G56.32 Lesion of radial nerve, left upper limb

== ENCOUNTER → 2025-06-03 09:27 | Outpatient (BNVA) | payer OTHER, SELFPAY | PROVIDERS: Visit Provider Physician Assistant Medical | DX: M25.512 Pain in left shoulder (principal); G56.32 Lesion of radial nerve, left upper limb | CPT/HCPCS: 99212 ==